=== PATIENT | female | born 1975 | race Caucasian/White ===

== ENCOUNTER → 2017-12-15 09:57 | Outpatient (REF) | payer SELFPAY | LOC: OM 09:57 | PROVIDERS: PCP Specialist/Technologist Athletic Trainer; Visit Provider Nurse Practitioner Family | DX: Z02.1 Encounter for pre-employment examination (principal) ==

== ENCOUNTER → 2017-12-17 16:23 | Outpatient (REF) | payer SELFPAY | LOC: OM 16:23 | PROVIDERS: PCP Specialist/Technologist Athletic Trainer; Visit Provider Nurse Practitioner Family | DX: Z11.1 Encounter for screening for respiratory tuberculosis (principal) ==

== ENCOUNTER 2018-03-30 12:42 | Outpatient (REF) | payer MEDICAID, SELFPAY ==
[2018-03-30 22:12] LABS: HCT 41.5 % (36.0-46.0); HGB 13.6 g/dL (12.0-15.5); Mean Corp. HGB Concentration 32.8 g/dL (32.0-36.0); Mean Corpuscular Hemoglobin 30.4 pg (27.0-33.0); Mean Corpuscular Volume 92.8 fL (80-95); Mean Platelet Volume 11.4 fL (8.0-11.0); Platelet Count 238 x1000/uL (130-400); RBC 4.47 m/cumm (4.00-5.20); RBC Distribution Width 13.7 % (11.7-14.6); White Blood Cell Count 5.81 k/cumm (4.4-10.8)
[2018-03-30 22:38] LABS: Anion Gap 10.5 mmol/L (3-11); BUN 16 mg/dL (7-18); CO2 25.5 mmol/L (21.0-32.0); CREATININE 0.63 mg/dL (0.55-1.02); Calcium 8.7 mg/dL (8.5-10.1); Chloride 104 mmol/L (98-107); Glucose 98 mg/dL (70-100); Potassium 3.9 mmol/L (3.5-5.1); Sodium 140 mmol/L (136-145); TSH (W/Ref FT4) 2.31 uIU/mL (0.358-3.74)
== END 2018-03-30 13:02 ==
LOC: NCHCN 12:42
PROVIDERS: PCP Specialist/Technologist Athletic Trainer; Visit Provider Specialist/Technologist Athletic Trainer
DX: R53.83 Other fatigue (principal)
CPT/HCPCS: 80048; 85027; 84443

== ENCOUNTER 2018-11-16 15:12 | Outpatient (REF) | payer MEDICAID, SELFPAY | END 2018-11-16 15:32 | LOC: NCHCN 15:12 | PROVIDERS: PCP Specialist/Technologist Athletic Trainer; Visit Provider Physician Assistant Medical | DX: R30.0 Dysuria (principal) | CPT/HCPCS: 87086 ==

== ENCOUNTER 2018-11-18 13:45 | Outpatient (REF) | payer MEDICAID, SELFPAY ==
[2018-11-19 14:41] LABS: Chlamydia Result Negative; GC Result Negative
== END 2018-11-18 14:05 ==
LOC: LBN 13:45
PROVIDERS: PCP Specialist/Technologist Athletic Trainer; Visit Provider Nurse Practitioner Women's Health
DX: Z11.3 Encounter for screening for infections with a predominantly sexual mode of transmission (principal)
CPT/HCPCS: 87491; 87591

== ENCOUNTER 2019-06-17 07:54 | Emergency (ER) | payer MEDICAID, SELFPAY ==
[2019-06-17 07:58] VITALS: BP 126/70; PULSE 101; TEMP 36.4; O2SAT 98
--- NOTE | 2019-06-17 08:06 | ED.GENADUL_ITS ---
Discharge Plan Disposition Patient Disposition: HOME Condition: Stable Discharge Details Chief Complaint: EarProblem Clinical Impression: Acute left otitis media Primary Care Provider: Fco Luna ED Provider: Lyle Graves Home Meds and New Rx's Prescriptions: New clindamycin HCl 150 mg capsule 450 mg PO TID 7 Days Qty: 63 RF: 0 Continued dextroamphetamine-amphetamine [Adderall] 10 MG tablet 30 mg PO DAILY RF: 0 ibuprofen 200 mg Tablet 600 mg PO Q6H PRNRF: 0 Discharge Instructions Instructions: Otitis Media (ED) Additional Instructions: continue to take the azithromycin and start the clindamycin you can take 1000mg tylenol and 600mg ibuprofen every 6 hours for pain as needed if you have high fevers or severe worsening pain return to the emergency department Medical Decision Making 44 yo female with no chronic medical problems comes in with chief complaint of 3 days of left ear pain. She was started on azithromycin and has had 3 doses but still has pain so came here. Denies fevers, chills, drainage or trauma. She has no evidence of mastoiditis on external exam, right tm normal and both external auditory canals appear normal without swelling. The left TM is red and bulging. given she has not had improvement with azithromcyin will add clindamycin and advised prn tylenol and ibuprofen. REturn precautions given Differential Diagnosis Differential Diagnosis: sinusitis, otitis media HPI General Mode of arrival: ambulatory . Date/Time Provider Initiated Documentation: 06/17/19 07:58 . Limitations to Documentation: no limitations . Information obtained by: patient . History of Present Illness 44 year old F presents to the emergency department with the chief complaint of left ear pain, described as moderate, and it has been constant. No relieving factors improve symptom(s), No exacerbating factors reported . Patient did receive the following treatments prior to arrival, none Related Data Home Medications Medication Instructions Recorded Confirmed dextroamphetamine-amphetamine 30 mg PO DAILY tab-cap 06/30/06/17/19 [Adderall] clindamycin HCl 450 mg PO TID 7 Days #63 cap 06/17/19 ibuprofen 600 mg PO Q6H PRN 06/17/19 06/17/19 Previous Rx's Medication Instructions Recorded clindamycin HCl 450 mg PO TID 7 Days #63 cap 06/17/19 Allergies Allergy/AdvReac Type Severity Reaction Status Date / Time Penicillins Allergy Mild RASH Unverified 06/17/19 08:00 POULTRY AdvReac Mild VOMIT Uncoded 06/17/19 08:00 General Stated Complaint: EarProblem JODIE: 4 Review of Systems All systems reviewed & are unremarkable except as noted in HPI and below Constitutional Constitutional: Denies chills and Denies fever(s) ENT Ears, Nose, Mouth, and Throat: Denies change in voice Cardiovascular Cardiovascular: Denies chest pain and Denies dyspnea Respiratory Respiratory: Denies cough and Denies dyspnea Gastrointestinal Gastrointestinal: Denies abdominal pain, Denies nausea and Denies vomiting Integumentary/Breasts Skin/Breast: Denies rash Psychiatric Psychiatric: Denies depression [facility] Medical History (Updated 06/17/19 @ 08:07 by Lyle Graves MD) Acne Cystocele, grade 2 2015 Internal hemorrhage seen by Dr. Garcia. No surgery recommended. Urinary incontinence mild ABILIO Surgical History (Updated 02/11/18 @ 14:35 by Pirate Pay MD) Tonsillectomy and adenoidectomy (~1992) Family History Mother No problems noted. Father No problems noted. Brother No problems noted. Grandfather No problems noted. Grandfather No problems noted. Grandmother No problems noted. Grandmother No problems noted. Social History Smoking/Tobacco Use Status: Current every day Tobacco Type: cigarettes Alcohol Intake: never Drug use: Never Substance use type: does not use Do you feel safe at home: Yes Do you feel safe in your relationship?: Yes Exam Const General: no acute distress Orientation: alert HENMT Head: normal to inspection Ears: external ears normal General nose exam: external nose normal Mouth: moist mucous membranes Eyes General: appearance normal, both eyes and all related structures Neck Neck: normal visual inspection Resp Effort & Inspection: normal respiratory effort and able to speak in complete sentences Cardio Rate: regular rate Skin General skin exam: no rashes or lesions noted Neuro General: alert and oriented x3 Extrem General: normal to inspection Psych Mental Status: mental status grossly normal Course Vital Signs Vital signs: Vital Signs Temperature 36.4 C L 06/17/19 07:58 Pulse 101 H 06/17/19 07:58 Blood Pressure 126/70 06/17/19 07:58 Pulse Oximetry 98 06/17/19 07:58 Temperature 36.4 C L 06/17/19 07:58 Pulse 101 H 02/20/20 07:58 Respiratory Effort Non-Labored 06/17/19 07:59 Blood Pressure 126/70 06/17/19 07:58 Blood Pressure Position Sitting 06/17/19 07:58 Pulse Oximetry 98 06/17/19 07:58 Oxygen Delivery Method Room Air 06/17/19 07:58 Oxygen Flow Rate 0 06/17/19 07:58 Pain Level 8 06/17/19 07:58
== END 2019-06-17 08:13 | disposition home or self-care (01) ==
LOC: ER 08:12
PROVIDERS: Emergency Provider Emergency Medicine; PCP Specialist/Technologist Athletic Trainer
DX: H66.92 Otitis media, unspecified, left ear (principal)
CPT/HCPCS: 99283

== ENCOUNTER 2019-06-17 20:32 | Observation (INO) | payer MEDICAID, SELFPAY ==
[2019-06-17 20:34] VITALS: BP 115/78; PULSE 96; RESP 20; TEMP 36.6; O2SAT 99
--- NOTE | 2019-06-17 20:42 | W.ED.GENAD ---
Discharge Plan Disposition Patient Disposition: [facility] INPATIENT Condition: Good Discharge Details Chief Complaint: EarProblem Clinical Impression: Acute suppur left otitis media w/spontan rupture of tympanic membrane, External otitis of left ear Primary Care Provider: Fco Luna ED Provider: Richy Fowler [place] Meds and New Rx's Prescriptions: No Action dextroamphetamine-amphetamine [Adderall] 10 MG tablet 30 mg PO DAILY RF: 0 azithromycin 250 mg Tablet 250 mg PO DAILY RF: 0 ibuprofen 200 mg Tablet 600 mg PO Q6H PRNRF: 0 clindamycin HCl 150 mg capsule 450 mg PO TID 7 Days Qty: 63 RF: 0 Medical Decision Making Patient presents with worsening symptoms related to left AOM. Now has presumed ruptured TM with purulent drainage but has also developed swelling and erythema of the canal and auricle itself. She also has significant tenderness behind the ear. She has had no fevers or chills. She does not look toxic. However, must consider mastoiditis and worsening otitis. Will place IV and get head/sinus CT. check CBC and chemistry. Fluids and Toradol ordered. Patient's laboratory studies are unremarkable. White count is normal. CT scan does show fluid within the left middle ear and mastoid. She also has air-fluid levels in the left sphenoid sinus. There is subtle edema over the left mastoid and the soft tissue. There is no lytic lesions, abscess, destructive process. Case discussed with ENT at [facility]. Images sent down but they were unable to open. Decided that patient does not need emergent transfer. Admit for IV antibiotics with recommendation of clindamycin since significant penicillin allergy. Also recommend both ear wick and Ciprodex twice a day. Discussed with patient. Discussed with hospitalist. Will also cover with Levaquin for possible Pseudomonas infection. Will attempt ENT consult tomorrow if available. Patient admitted in good condition. Medical Records Medical records reviewed: Yes I reviewed the patient's medical records. Lab Data Lab results reviewed: Yes I reviewed the patient's lab results. HPI General Mode of arrival: ambulatory. Date/Time Provider Initiated Documentation: 06/17/19 20:40. Limitations to Documentation: no limitations. Information obtained by: patient, RN notes reviewed and old records reviewed. HPI Narrative: Patient presents to ED with worsening left ear pain. Patient got over a cold a few days ago. Subsequently developed left ear pain. Was seen by primary care and started on a azithromycin. She has allergies to penicillins. She was seen here in the emergency department this morning with worsening ear pain. She still had erythematous bulging eardrum per the ED note. Azithromycin was continued and clindamycin was added. Since going home patient's pain has become worse. The ear has been draining copious amounts of fluid. The ear has also become swollen and red. She is starting to have pain in the left side of her face as well as behind her ear. She has a mild headache. She has had no fevers or chills that she is aware of. Throat a little more sore than it was. No cough or trouble breathing. No neurologic changes. She has nausea and no appetite because of the pain. There has been no vomiting. Related Data Home Medications Medication Instructions Recorded Confirmed dextroamphetamine-amphetamine 30 mg PO DAILY tab-cap 06/30/14 06/17/19 [Adderall] azithromycin 250 mg PO DAILY 06/17/19 06/17/19 clindamycin HCl 450 mg PO TID 7 Days #63 cap 06/17/19 06/17/19 ibuprofen 600 mg PO Q6H PRN 06/17/19 06/17/19 Previous Rx's Medication Instructions Recorded clindamycin HCl 450 mg PO TID 7 Days #63 cap 06/17/19 Allergies Allergy/AdvReac Type Severity Reaction Status Date / Time Penicillins Allergy Mild RASH Unverified 06/17/19 20:36 POULTRY AdvReac Mild VOMIT Uncoded 06/17/19 20:36 General Stated Complaint: EarProblem JODIE: 5 Review of Systems Narrative: 02/08 Review of Systems completed and is negative except as stated above in HPI (Systems reviewed: Const, Eyes, ENT, Resp, CV, GI, , MSK, Skin, Neuro) [facility] Medical History (Updated 06/17/19 @ 23:38 by Richy Fowler MD) Acne ADHD (Chronic) Cystocele, grade 2 2015 Urinary incontinence mild ABILIO Surgical History Tonsillectomy and adenoidectomy (~1992) Family History Mother No problems noted. Father No problems noted. Brother No problems noted. Grandfather No problems noted. Grandfather No problems noted. Grandmother No problems noted. Grandmother No problems noted. Social History Smoking/Tobacco Use Status: Current every day Tobacco Type: cigarettes Alcohol Intake: never Drug use: Never Substance use type: does not use Do you feel safe at home: Yes Do you feel safe in your relationship?: Yes Exam Narrative Exam Narrative: Vitals: Afebrile here. Normal vital signs and normal room air pulse oximetry. Const: WDWN female in NAD. HEENT: NC/AT. Normal facial exam. Left ear with erythema involving the internal portion of the auricle, specifically tragus and antitragus as well as the entry into the canal. Canal itself has purulent material present but is so swollen I am unable to visualize the TM. There is tenderness posteriorly behind the ear but no significant swelling or erythema. Right TM is normal. Eyes: Normal conjunctiva and sclera. Neck: Supple. Trachea midline. No meningeal signs. Lungs: Normal respiratory effort. Lungs are clear. Cor: RRR without murmur/gallop. Good radial pulses. Neuro: A+O x 3. Normal speech, mentation, gait. Cranial nerves II - XII grossly intact. No gross motor or sensory deficit. Ext: No C/C/E. Skin: Warm and dry without rash. Course Vital Signs Vital signs: Vital Signs Temperature 97.9 F 06/17/19 20:34 Pulse 96 H 06/17/19 20:34 Respiratory Rate 20 06/17/19 20:34 Blood Pressure 115/78 06/17/19 20:34 Pulse Oximetry 99 06/17/19 20:34 Temperature 97.9 F 06/17/19 20:34 Temperature Source Temporal Artery Scan 06/17/19 20:34 Pulse 96 H 06/17/19 20:34 Respiratory Rate 20 06/17/19 20:34 Respiratory Effort Non-Labored 06/17/19 20:37 Blood Pressure 115/78 06/17/19 20:34 Pulse Oximetry 99 06/17/19 20:34 Oxygen Delivery Method Room Air 06/17/19 20:34 Oxygen Flow Rate 0 06/17/19 20:34 Pain Level 8 06/17/19 20:37
[2019-06-17 21:11] LABS: Abs Immature Grans 0.06 k/cumm (0.0-0.09); Absolute Basophil Count 0.02 k/cumm (0.0-0.2); Absolute Eosinophil Count 0.43 k/cumm (0.0-0.7); Absolute Lymphocyte Count 2.53 k/cumm (1.2-3.4); Absolute Monocyte Count 0.75 k/cumm (0.11-0.7); Absolute Neutrophil Count 4.76 k/cumm (1.2-6.7); Basophils % 0.2; HCT 40.2 % (36.0-46.0); HGB 13.3 g/dL (12.0-15.5); Immature Grans % 0.7 %; Lymphocytes % 29.6; Mean Corp. HGB Concentration 33.1 g/dL (32.0-36.0); Mean Corpuscular Hemoglobin 29.6 pg (27.0-33.0); Mean Corpuscular Volume 89.3 fL (80-95); Mean Platelet Volume 11.1 fL (8.0-11.0); Monocytes % 8.8; Neutrophils % 55.7; Platelet Count 302 x1000/uL (130-400); RBC Distribution Width 13.3 % (11.7-14.6); White Blood Cell Count 8.55 k/cumm (4.4-10.8)
[2019-06-17 21:17] LABS: Anion Gap 8.6 mmol/L (3-11); BUN 14 mg/dL (7-18); CO2 27.4 mmol/L (21.0-32.0); CREATININE 0.75 mg/dL (0.55-1.02); Calcium 8.5 mg/dL (8.5-10.1); Chloride 103 mmol/L (98-107); Glucose 91 mg/dL (74-106); Potassium 3.7 mmol/L (3.5-5.1); Sodium 139 mmol/L (136-145)
[2019-06-17] MEDS: Ketorolac 15 MG/ML VIAL IVP (21:18)
[2019-06-17] MEDS: Lactated Ringers 1,000 ML 200 ML IV (21:18)
[2019-06-17] MEDS: Normal Saline Flush 10 ML SYR IVP (21:18)
--- NOTE | 2019-06-17 21:29 | DI.CT_ITS ---
EXAM: CT HEAD SINUS WO CLINICAL HISTORY: worsening left ear/mastoid/face pain TECHNIQUE: Noncontrast. COMPARISON: No exams were available for comparison FINDINGS: Head CT: No intracranial hemorrhage, mass or infarct is seen. The ventricles are normal in size. G ray-white matter differentiation appears normal. There is no visible atrophy. The orbits are unrema rkable. Sinus CT: There is near complete opacification of the left sphenoid sinus. A small amount of debris i s seen in the right sphenoid sinus. The frontal, ethmoid sinuses and mastoid air cells appear clear. The ostiomeatal complexes are patent. There is mild chrissy bullosa of the right middle turbinate. The nasal cavity appears clear. There is mild deviation of the nasal septum toward the right. Ther e is fluid seen partially opacifying the right mastoid air cells. There is also fluid surrounding th e ossicles, in the middle ear. The right mastoid air cells appear clear. The visualized portions of the cervical spine are unremarkable. The orbits, parotid and submandibular glands are unremarkable. There is no evidence of bony erosion. IMPRESSION: Negative head CT. Left otomastoiditis without evidence of bony destruction. Bilateral sphenoid sinusitis.
--- NOTE | 2019-06-17 22:00 | DI.VRAD_ITS ---
PROCEDURE INFORMATION: Exam: CT Head Without Contrast Exam date and time: 06/17/2019 8:55 PM Age: 44 years old Clinical indication: Headache; Other: Left ear/mastoid/face pain TECHNIQUE: Imaging protocol: Computed tomography of the head without contrast. Radiation optimization: All CT scans at this facility use at least one of these dose optimization techniques: automated exposure control; mA and/or kV adjustment per patient size (includes targeted exams where dose is matched to clinical indication); or iterative reconstruction. COMPARISON: No relevant prior studies available. FINDINGS: Brain: Normal volume for age. No hemorrhage. No significant white matter disease. No edema. Ventricles: Unremarkable. No ventriculomegaly. Bones/joints: No acute fracture or dislocation. Sinuses: There is near complete opacification of the left sphenoid sinus with air-fluid level with flocculent debris within the dependent right sphenoid sinus. Paranasal sinuses are otherwise well aerated without air-fluid level. Mastoid air cells: Moderate opacification of the left mastoid air cells. No associated osseous lytic/destructive process or significant osseous sclerosis of the left mastoid air cells. The right mastoid air cells are clear. Orbits: Unremarkable. Soft tissues: Subtle subcutaneous edema overlying the left mastoid process without significant asymmetric skin thickening or soft tissue fluid collection. No periosteal abscess identified. There is partial opacification of the left middle ear cavity involving the ossicles. IMPRESSION: 1. No acute intracranial finding. 2. Findings compatible with left otomastoiditis. No osseous lytic/destructive process of the left mastoid air cells. No adjacent cortical disruption or soft tissue mass/fluid collection. Correlate clinically. 3. Opacification with air-fluid level of the left sphenoid sinus. Correlate clinically for symptoms of sinusitis. PROCEDURE INFORMATION: Exam: CT Maxillofacial Without Contrast, Sinus Exam date and time: 06/17/2019 8:55 PM Age: 44 years old Clinical indication: Headache; Other: Left ear/mastoid/face pain TECHNIQUE: Imaging protocol: CT Maxillofacial without contrast. Focus on the sinuses. Radiation optimization: All CT scans at this facility use at least one of these dose optimization techniques: automated exposure control; mA and/or kV adjustment per patient size (includes targeted exams where dose is matched to clinical indication); or iterative reconstruction. COMPARISON: No relevant prior studies available. FINDINGS: Frontal sinuses: Well aerated without air-fluid level. Frontoethmoidal recesses are patent. Ethmoid air cells: Clear. Sphenoid sinuses: There is near complete opacification of the left sphenoid sinus with air-fluid level with flocculent debris within the dependent right sphenoid sinus. Paranasal sinuses are otherwise well aerated without air-fluid level. Punctate focal opacity at the bilateral spheno are ethmoidal recesses. Maxillary sinuses: Normal. No air-fluid levels. Ostiomeatal units are patent. Orbits: Orbits are normal. Globes are unremarkable. Mastoid air cells: Moderate opacification of the left mastoid air cells. No associated osseous lytic/destructive process or significant osseous sclerosis of the left mastoid air cells. The right mastoid air cells are clear. Nasal cavity/Septum: Unremarkable. Soft tissues: Subtle subcutaneous edema overlying the left mastoid process without significant asymmetric skin thickening or soft tissue fluid collection. No periosteal abscess identified. There is partial opacification of the left middle ear cavity involving the ossicles. Bones/joints: No acute fracture or dislocation. IMPRESSION: 1. Findings compatible with left otomastoiditis. No osseous lytic/destructive process of the left mastoid air cells. No adjacent cortical disruption or soft tissue mass/fluid collection. Correlate clinically. 2. Opacification with air-fluid level of the left sphenoid sinus. Correlate clinically for symptoms of sinusitis. Dictated and Authenticated by: Jarad Carreon MD. Ordering:SHABNAM Lockhart MD
[2019-06-17] MEDS: CLINDAMYCIN 600 MG/50 ML BAG 100 MG IVPB (23:27)
[2019-06-17] MEDS: levoFLOXacin 500 MG/100 ML BAG 100 MG IVPB (23:32)
[2019-06-17 23:37] VITALS: BP 102/64; PULSE 80; RESP 19; TEMP 37; O2SAT 100
[2019-06-17] MEDS: Ciprofloxacin/Dexameth. 7.5 ML BTL AS (23:42)
[2019-06-18 00:04] VITALS: BP 102/64; PULSE 80; RESP 19; TEMP 37; O2SAT 100
[2019-06-18 00:22] VITALS: BP 126/82; PULSE 95; RESP 16; TEMP 37; O2SAT 100
[2019-06-18 04:00] VITALS: BP 106/68; PULSE 75; RESP 18; TEMP 36.8; O2SAT 96
[2019-06-18] MEDS: Lactated Ringers 1,000 ML 200 ML IV (04:09)
[2019-06-18] MEDS: Normal Saline Flush 10 ML SYR IVP (04:09)
[2019-06-18] MEDS: Ketorolac 15 MG/ML VIAL IVP ×2 (04:09→16:14)
--- NOTE | 2019-06-18 04:44 | HPE_ITS ---
Date of service: 06/18/19 Time of Service: 04:45 Assessment and Plan Assessment and plan (1) Acute suppur left otitis media w/spontan rupture of tympanic membrane: Status: Acute Assessment and plan: Progressive pain, manifestations of involvement of mastoid area, spontaneous drainage with external inflammatory changes suggesting addition of otitis externa, failed outpatient therapy initially started with azithromycin and then clindamycin added on. Significant allergic reactions to several different beta-lactam antibiotics, outpatient notes indicate shortness of breath with cephalexin and rash with penicillin. Also noted to have sulfa allergy with rash. It is possible she has strep pneumonia resistant to macrolide antibiotic as the cause. Per Dr. Fowler's conversation with [facility], earwick and Ciprodex drops being applied. She is also on parenteral Levaquin and clindamycin. Further ENT consult request has been placed to assist with ongoing management. Thus far does not appear to have a need for surgical intervention. If there is clinical improvement with this combination of ant ibiotics, possible discharge on oral Levaquin and clindamycin to complete treatment. (2) Sinusitis: Status: Acute Assessment and plan: Part of the same process that has resulted in her left otitis media with perforation. Management as above. (3) ADHD: Status: Chronic Assessment and plan: Adderall on hold for the short-term. She does not use this daily. (4) Tobacco smoker, less than 10 cigarettes per day: Status: Acute Assessment and plan: She is working to cut down and quit. Will offer nicotine inhaler as needed. History of Present Illness History of Present Illness Chief Complaint: Progressive left ear pain Narrative: Generally healthy 44-year-old woman working on smoking cessation, presented to the emergency room for the second time in less than 24 hours with worsening left ear pain. She was seen by her primary acute care clinical nurse specialist 2 days prior with resolving flulike symptoms of but development of left ear pain. She was found to have acute otitis media and was started on azithromycin because of her multiple drug allergies. She had increasing discomfort, pressure sensation within the ear, but no external erythema of the pinna or drainage when she presented to the emergency room on the morning of admission because of increased discomfort. Clindamycin orally was added to the azithromycin, of which she had had 2 doses thus far. Her pain continued to progress, her ear became red and tender and she had spontaneous drainage of mucopurulent material from the left ear prompting return to the ER on the evening of admission. She did not have forward or downward displacement of the ear or obvious swelling over the mastoids. She was mildly tender. CT scan was performed which showed inflammatory involvement of left sphenoid and mastoid sinus areas as well as the middle ear. There was no bone destruction. ENT at [facility] [place] consulted by Dr. Fowler, who reviewed the images and did not see a need for surgical intervention at this time. Recommendations for for placing an ear wick, using Ciprodex drops and clindamycin parenterally. In conversation with Dr. Fowler I did not feel we had adequate gram-negative coverage, particularly Pseudomonas, with this combination and recommended the addition of Levaquin. She has been admitted for parenteral antibiotics and symptom management. Review of Systems Narrative: Flulike symptoms have resolved but still has a bit of a headache. Pain control since admission with the use of ketorolac and the eardrops has helped. No cough or wheeze. Appetite down but no nausea or vomiting. No abdominal pain. No dysuria. No facial numbness. No double vision. No trouble swallowing. Full sensation in the left mid face area. No epistaxis. [facility] Medical History (Updated 06/18/19 @ 04:47 by Santosh Leon MD) Acne ADHD (Chronic) Cystocele, grade 2 2015 Urinary incontinence mild ABILIO Surgical History Tonsillectomy and adenoidectomy (~1992) Family History Mother No problems noted. Father No problems noted. Brother No problems noted. Grandfather No problems noted. Grandfather No problems noted. Grandmother No problems noted. Grandmother No problems noted. Social History Smoking/Tobacco Use Status: Current every day Tobacco Type: cigarettes Alcohol Intake: never Drug use: Never Substance use type: does not use Do you feel safe at home: Yes Do you feel safe in your relationship?: Yes Meds Home Medications and Allergies Home Medications Medication Instructions Recorded Confirmed Type dextroamphetamine-amphetamine 30 mg PO DAILY tab-cap 06/30/14 06/17/19 History [Adderall] azithromycin 250 mg PO DAILY 06/17/19 06/17/19 History clindamycin HCl 450 mg PO TID 7 Days #63 cap 06/17/19 06/17/19 Rx ibuprofen 600 mg PO Q6H PRN 06/17/19 06/17/19 History Allergies Allergy/AdvReac Type Severity Reaction Status Date / Time Penicillins Allergy Mild RASH Unverified 06/17/19 20:36 POULTRY AdvReac Mild VOMIT Uncoded 06/17/19 20:36 Exam Narrative Exam Narrative: Woman appearing her stated age, mildly uncomfortable from left e ar. Afebrile since admission. Blood pressures 100s over 60s pulse in the 70s SaO2 96% on room air. Sclera clear. No rhinorrhea present now. There is erythema of the left pinna mild edema of the pinna no forward or downward displacement. There is a wick in the left auditory canal, I did not remove this. Per description from Dr. Fowler in the ER before the wick was placed canal was swollen, filled with debris with poor view of the tympanic membrane. (Outpatient note from exam 3 days ago reported left ear red and bulging.) No swelling over the mastoids nor any redness. Mildly tender to percussion over the mastoids on the left. Some fullness and pressure feeling with percussion of the left frontal sinus. Pharynx clear no posterior pharyngeal discharge seen. No cervical adenopathy. Neck supple. Lungs are clear. No heart murmur S3 or S4. Nontender abdomen with normal bowel sounds. Good pulses distally. No rash. No petechiae. No edema at the ankles or calves. Symmetric movement of all extremities. Sits up unassisted. Oriented x4. Results CT scan of the brain normal. Complete opacification of the left sphenoid sinus, moderate opacification of left mastoid without bone destruction or lytic changes. Partial opacification of the left middle ear. Culture of the discharge from the left ear obtained with results pending. Labs Result diagrams: 06/17/19 21:05 06/17/19 21:05 Labs: Laboratory Results - last 24 hr 06/17/19 06/17/19 21:05 21:05 WBC 8.55 RBC 4.50 Hgb 13.3 Hct 40.2 MCV 89.3 MCH 29.6 MCHC 33.1 RDW 13.3 Plt Count 302 MPV 11.1 H Immature Gran % 0.7 Neutrophils % 55.7 Lymphocytes % 29.6 Monocytes % 8.8 Eosinophils % 5.0 Basophils % 0.2 Absolute Neutrophils 4.76 Absolute Lymphocytes 2.53 Absolute Monocytes 0.75 H Absolute Eosinophils 0.43 Absolute Basophils 0.02 Sodium 139 Potassium 3.7 Chloride 103 Carbon Dioxide 27.4 Anion Gap 8.6 BUN 14 Creatinine 0.75 Estimated GFR/1.73 m2 >= 60.00 Glucose 91 Calcium 8.5 Last Vital Signs Temp 36.8 C 06/18/19 04:00 Pulse 75 06/18/19 04:00 Resp 18 06/18/19 04:00 BP 106/68 06/18/19 04:00 Pulse Ox 96 06/18/19 04:00
[2019-06-18] MEDS: CLINDAMYCIN 600 MG/50 ML BAG 100 MG IVPB ×3 (06:33→17:09)
[2019-06-18 07:40] VITALS: BP 102/68; PULSE 78; RESP 16; TEMP 36.8; O2SAT 97
[2019-06-18] MEDS: Ciprofloxacin/Dexameth. 7.5 ML BTL AS (08:54)
--- NOTE | 2019-06-18 10:36 | PHARADMIT ---
Admission Pharmacy Clinical Review left osorio-mastoiditis, (burst ear drum) Code Status Full Code Current Weight Wgt-78 kg Renally Cleared and Narrow Therapeutic Index Meds Crcl~ 92.41 mL/min Meds-OK QTc Value / Action Taken QTc-413 na BP Control, Fever BP-102/86 Tmax-37C Electrolytes reviewed Na-139 K+3.7 DVT Prophylaxis none Opiate Usage / Scheduled Bowel Regimen Ordered No No Plt/SCr for Heparin / Enoxaparin Plts-302 SCr-0.75 INR for Warfarin na H/H stable, WBC/Bands H&H- 13.3/40.2 WBC- 8.55 Antibiotic appropriateness Clindamycin IV, Levaquin IV, CiproDex Cultures and Sensitivities Ear culture-pending Surgical ABX d/c within 24 hr na DM control / Insulin Dosing BG-91 Heart Failure (Check EF%) (JULISSA's, B-Block, Diuretics) None IV to PO Switch No Home Meds Reviewed Yes Home Meds Not Ordered Adderall, Ibuprofen, Azithromycin Comments
[2019-06-18] MEDS: Lactated Ringers 1,000 ML 125 ML IV (12:03)
--- NOTE | 2019-06-18 13:54 | W.NUTCONSULT ---
Date of service: 06/18/19 Time of Service: 13:54 Nutritional Consult ASSESSMENT: 44 year old female admitted with left otitus media. BMI wnl. Following regular meal plan with adequate intake. not at nutritional risk at this time. reports that she is allergic to poultry, dietary notified MONITORING AND EVALUATION: weight, po intake, labs Time Spent in Nutritional Counseling and Treatment: 0 time spent face to face
--- NOTE | 2019-06-18 15:17 | DSE_ITS ---
Date of service: 06/18/19 Time of Service: 15:17 DS: Diagnosis Discharge Diagnosis (1) Acute suppur left otitis media w/spontan rupture of tympanic membrane: Status: Acute (2) Sinusitis: Status: Acute (3) ADHD: Status: Chronic (4) Tobacco smoker, less than 10 cigarettes per day: Status: Acute Discharge Plan Disposition Patient Disposition: HOME Condition: Good Discharge Details Chief Complaint: EarProblem Clinical Impression: Acute suppur left otitis media w/spontan rupture of tympanic membrane, External otitis of left ear Reason For Visit: LEFT OTOMASTOIDITIS Admit Date/Time: 06/17/19 23:29 Admit Provider: Santosh Leon Attending Provider: Santosh Leon Primary Care Provider: Fco Luna ED Provider: Richy Fowler [facility] Hospital Course: A generally healthy 44-year-old woman working on smoking cessation, presented to the emergency room for the second time in less than 24 hours with worsening left ear pain. She was seen by her primary clinical care coordinator 2 days prior with resolving flulike symptoms of but development of left ear pain. She was found to have acute otitis media and was started on azithromycin because of her multiple drug allergies. She had increasing discomfort, pressure sensation within the ear, but no external erythema of the pinna or drainage when she presented to the emergency room on the morning of admission because of increased discomfort. Clindamycin orally was added to the azithromycin, of which she had had 2 doses thus far. Her pain continued to progress, her ear became red and tender and she had spontaneous drainage of mucopurulent material from the left ear prompting return to the ER on the evening of admission. She did not have forward or downward displacement of the ear or obvious swelling over the m astoids. She was mildly tender. CT scan was performed which showed inflammatory involvement of left sphenoid and mastoid sinus areas as well as the middle ear. There was no bone destruction. ENT at [facility] was consulted by Dr. Fowler, who reviewed the images and did not see a need for surgical intervention at this time. Recommendations for for placing an ear wick, using Ciprodex drops and clindamycin parenterally. In conversation with Dr. Fowler I did not feel we had adequate gram-negative coverage, particularly Pseudomonas, with this combination and recommended the addition of Levaquin. She has been admitted for parenteral antibiotics and symptom management. Her symptoms have improved and she is hoping to go home to complete her course of antibiotics outpatient. she will receive a dose of IV clindamycin at 6 pm tonight then will be discharge to complete her course oral. she already has the prescription. I will have her stop the zithromax and continue with levaquin outpatient. she will follow up with ENT outpatient or return sooner for new or worsening symptoms. Home Meds and New Rx's Prescriptions: New Ciprodex 0.3-0.1 % Drops,Suspension 0 ml BID Qty: 0 RF: 0 levofloxacin [Levaquin] 500 mg tablet 500 mg PO DAILY Qty: 10 RF: 0 Continued dextroamphetamine-amphetamine [Adderall] 10 MG tablet 30 mg PO DAILY RF: 0 ibuprofen 200 mg Tablet 600 mg PO Q6H PRNRF: 0 clindamycin HCl 150 mg capsule 450 mg PO TID 7 Days Qty: 63 RF: 0 Discontinued azithromycin 250 mg Tablet 250 mg PO DAILY RF: 0 Discharge Instructions Instructions: Mastoiditis (DC) Additional Instructions: stop azithromycin and start levaquin for 10 days. continue clindamycin as previously directed. drink at least 6-8 glasses of water to stay well hydrated. continue ciprodex ear drops 2 times daily. Stand Alone Forms: Nursing Discharge Form Referrals: Fco Luna [Primary Care Provider] - 06/28/19 8:45 am Activity:: Activity as Tolerated Equipment/Supplies:: No Equipment Needed Diet:: As Tolerated Discharge Orders Discharge Orders: Discharge Order (Routine); Ordered 06/18/19 Ordered By: Brinda Minor DS: Summary Status at Discharge Functional status at discharge: independent ambulation Overall status at discharge: patient is progressing back to baseline Mental Status: mental status grossly normal Speech and Movement: speech and movement normal Mood: congruent mood Affect: normal affect Exam Psych Mental Status: mental status grossly normal Speech and Movement: speech and movement normal Mood: congruent mood Affect: normal affect DS: Data Vitals/I&O Vitals and I&O: Vital Signs Temperature 36.8 C 06/18/19 07:40 Temperature Source Tympanic 06/18/19 07:40 Pulse 78 06/18/19 07:40 Pulse Rhythm Regular 06/18/19 08:00 Respiratory Rate 16 06/18/19 07:40 Respiratory Effort 06/18/19 08:00 Respiratory Depth Normal 06/18/19 08:00 Respiratory Pattern Normal 06/18/19 08:00 Blood Pressure 102/68 06/18/19 07:40 Pulse Oximetry 97 06/18/19 07:40 Oxygen Delivery Method Room Air 06/18/19 07:40 Oxygen Flow Rate 0 06/18/19 07:40 Pain Level 0 06/18/19 07:40 Intake & Output 06/17/19 06/18/19 06/18/19 23:59 11:59 23:59 Intake Total 1563.333 / 2548.750 985.417 / 2548.750 Output Total 500 / 500 Balance 1063.333 / 2048.750 985.417 / 2048.750 Weight 78.018 kg 78.018 kg Intake: IV 1203.333 / 2188.750 985.417 / 2188.750 Oral 360 / 360 Output: Urine 500 / 500 Other: Urine Color Yellow Urine Appearance Clear Urine Odor None Voiding Methods Toilet Data Completed and Pending Labs on day of discharge: Labs from last 24 hours 06/17/19 06/17/19 21:05 21:05 WBC 8.55 RBC 4.50 Hgb 13.3 Hct 40.2 MCV 89.3 MCH 29.6 MCHC 33.1 RDW 13.3 Plt Count 302 MPV 11.1 H Immature Gran % 0.7 Neutrophils % 55.7 Lymphocytes % 29.6 Monocytes % 8.8 Eosinophils % 5.0 Basophils % 0.2 Absolute Neutrophils 4.76 Absolute Lymphocytes 2.53 Absolute Monocytes 0.75 H Absolute Eosinophils 0.43 Absolute Basophils 0.02 Sodium 139 Potassium 3.7 Chloride 103 Carbon Dioxide 27.4 Anion Gap 8.6 BUN 14 Creatinine 0.75 Estimated GFR/1.73 m2 >= 60.00 Glucose 91 Calcium 8.5 06/17/19 23:26 Ear - Left Ear Culture - Pending Preliminary micro results at discharge 06/17/19 23:26 Ear Culture - Pending Ear - Left [facility] Medical History (Updated 06/18/19 @ 04:47 by Santosh eLon MD) Acne ADHD (Chronic) Cystocele, grade 2 2015 Urinary incontinence mild ABILIO Surgical History Tonsillectomy and adenoidectomy (~1992) Family History Mother No problems noted. Father No problems noted. Brother No problems noted. Grandfather No problems noted. Grandfather No problems noted. Grandmother No problems noted. Grandmother No problems noted. Social History Smoking/Tobacco Use Status: Current every day Tobacco Type: cigarettes Alcohol Intake: never Drug use: Never Substance use type: does not use Do you feel safe at home: Yes Do you feel safe in your relationship?: Yes
== END 2019-06-18 18:19 | disposition home or self-care (01) ==
LOC: ER 23:36 → MS 06-18 00:13
PROVIDERS: Admitting Provider Internal Medicine; Emergency Provider Emergency Medicine; PCP Specialist/Technologist Athletic Trainer; Visit Provider Internal Medicine
DX: H66.012 Acute suppurative otitis media with spontaneous rupture of ear drum, left ear (principal); H60.92 Unspecified otitis externa, left ear; H66.92 Otitis media, unspecified, left ear; J32.8 Other chronic sinusitis; F90.9 Attention-deficit hyperactivity disorder, unspecified type; F17.210 Nicotine dependence, cigarettes, uncomplicated
CPT/HCPCS: 36415; 80048; 81025; 96361; 96365; 96368; 96375; 99217; 99219; 99283; 99285; 70450; 70486; 85025; 87070; G0378; J1885; J1956

== ENCOUNTER 2019-07-09 01:03 | Emergency (ER) | payer MEDICAID, SELFPAY ==
[2019-07-09 01:07] VITALS: BP 122/83; PULSE 89; RESP 18; TEMP 36.5; O2SAT 19
--- NOTE | 2019-07-09 01:27 | ED.GENADUL_ITS ---
Discharge Plan Disposition Patient Disposition: HOME Condition: Good Discharge Details Chief Complaint: RespSymp Clinical Impression: Viral infection, Suspected 2019 novel coronavirus infection Primary Care Provider: Fco Luna ED Provider: Duglas Jackson Home Meds and New Rx's Prescriptions: No Action dextroamphetamine-amphetamine [Adderall] 10 MG tablet 30 mg PO DAILY RF: 0 Discharge Instructions Instructions: Viral Syndrome (ED) Additional Instructions: At this time your symptoms are consistent with a viral upper respiratory infection. I am concerned that this is from coronavirus. It will take 48 to 72 hours for your coronavirus test to return. You will be contacted with the results, however I would recommend that you contact the hospital in the next 48 to 72 hours if you hear nothing from us. In the meantime, please use your inhaler, 2 puffs every 4-6 hours to help with relief of symptoms. Drink plenty of fluids, take Tylenol and Motrin as needed for fever. Get plenty of rest. Out of an abundance of precaution recommend to self quarantine yourself for a total of 14 days or until completely symptom-free for greater than 24-48 hours after speaking with and consulting a physician. It would be prudent to wear a mask at all times, always wash your hands frequently, follow-up closely with your primary care provider over the phone. Please always call their office first. If you notice any worsening of your symptoms, or any new symptoms such as vomiting, diarrhea, worsening fever, worsening chills, worsening shortness of breath, difficulty breathing, chest pain, numbness, weakness, or fainting , please CALL and then return immediately to the emergency department for reevaluation. Please CALL your primary care provider as soon as possible for reassessment and reevaluation. Additionally out of an abundance of precaution I would recommend that you self quarantine your family members as well. I would also contact your workplace and inform them of our high level of concern and current pending test results. If you have any questions in general did not hesitate to contact us here in the ED. As always, it was a pleasure par ticipating in your medical care today. Stand Alone Forms: Work Release Referrals: Fco Luna [Primary Care Provider] - Discharge Data Discharge Date/Time-TO BE ENTERED AT DEPARTURE: 07/09/19 02:45 Medical Decision Making 44-year-old female with no significant past medical history except for tobacco abuse, who presents today for evaluation of shortness of breath. Patient states that starting today she has had fever, chills, dry nonproductive cough, and shortness of breath. She denies any headache or neck pain. 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 She does note at her work that there are some other people have similar symptomatology, but not as severe as hers. She denies any hemoptysis. Denies PE risk factors such as recent long car rides, immobilization, recent surgery, prior history of DVT or PE, family history of PE or DVT, morbid obesity, exogenous estrogen and smoking, hemoptysis, history of cancer. She has no other complaints at this time. No other modifying factors. She did get her flu shot this year. Physical exam demonstrates Mild respiratory difficulty, 3-4 word sentences, slightly rapid breathing but no hypoxemia. Lung sounds demonstrate minimal diffuse crackles throughout, minimal wheezes in the bases. No rhonchi. Limited bedside portable ultrasound shows no B-lines or consolidation that I can appreciate. No evidence of significant effusion. In spite of these findings the patient looks notably clinically well, and does not demonstrate evidence of significant respiratory distress, significant or severe illness, or sepsis. However with the patient's recent contact, as well as concerning an atypical symptomatology I do feel that she certainly falls within the indications for covered 19 testing. additionally patient currently does not demonstrate symptoms indicative of admission or further observation here. We will test for influenza, get a chest x-ray, and given inhaler for home use. Will monitor closely and reassess. 3 AM Influenza testing has returned negative. Chest x-ray per virtual radiology demonstrates no evidence of effusion, consolidation, or pulmonary edema. The patient is clinically not in ARDS at this time. After breathing treatments from the inhaler the patient is feeling much better. Her conversational dyspnea is notably improved. Repeat lung sounds demonstrate reduction in wheezes. Minimal crackles still present. Evaluating the patient's entire clinical picture, and CDC recommendations, the patient at this time does appear to be clinically stable to be discharged home as there is no current clinical indication for admission. I did contact the [facility], discussed the scenario, they to agree that Covid testing is indicated. Swabs will be sent. Out of concern with the patient's recent contacts, atypical clinical symptoms meriting testing and concern for covid 19, I have recommended that the patient perform a 14-day self quarantine. I have also recommended the same for her 2 children. I have recommended to the patient wearing of a mask for the next 14 days, as well as good handwashing te chniques. I have extensively reviewed the treatment plan and discharge instructions with the patient. I have addressed all patient concerns at this time. The patient was made aware of what symptoms to monitor for that would warrant a return to the emergency department. I also discussed the importance of calling the patient's PCP, as well as the ED for any concerns or prior to return. CDC guidelines for appropriate self quarantine techniques at home were also given to the patient. Discussed the plan with the patient, they demonstrate verbal understanding and agreement with our assessment and plan at this time. FINDINGS: Lungs: Nonspecific imag-pr-tnzopezh hyperinflation. No consolidation. Pleural space: Unremarkable. No pleural effusion. No pneumothorax. Heart/Mediastinum: Unremarkable. No cardiomegaly. Bones/joints: Unremarkable. IMPRESSION: 1. Nonspecific ofoc-xq-ohcudjkh hyperinflation. 2. No focal lung infiltrates or consolidation. 3. No pleural effusions. Thank you for allowing us to participate in the care of your patient. Dictated and Authenticated by: Marcelo Whitfield MD 07/09/2019 1:56 AM Eastern Time ([place] & [place]) HPI General Date/Time Provider Initiated Documentation: 07/09/19 01:03 . HPI Narrative: 44-year-old female with no significant past medical history except for tobacco abuse, who presents today for evaluation of shortness of breath. Patient states that starting today she has had fever, chills, dry nonproductive cough, and shortness of breath. She denies any headache or neck pain. Today she also received an email that 1 of her coworkers whom she was in a direct board meeting with and shook hands with was recently at the [email or web address] hotel, and was subsequently diagnosed with coronavirus. She does note at her work that there are some other people have similar symptomatology, but not as severe as hers. She denies any hemoptysis. Denies PE risk factors such as recent long car rides, immobilization, recent surgery, prior history of DVT or PE, family history of PE or DVT, morbid obesity, exogenous estrogen and smoking, hemoptysis, history of cancer. She has no other complaints at this time. No other modifying factors. She did get her flu shot this year. Related Data Home Medications Medication Instructions Recorded Confirmed dextroamphetamine-amphetamine 30 mg PO DAILY tab-cap 06/30/14 07/09/19 [Adderall] Allergies Allergy/AdvReac Type Severity Reaction Status Date / Time Penicillins Allergy Mild RASH Unverified 07/09/19 01:19 POULTRY AdvReac Mild VOMIT Uncoded 07/09/19 01:19 General Stated Complaint: RespSymp JODIE: 4 Review of Systems All systems reviewed & are unremarkable except as noted in HPI and below PFSH Family History Mother No problems noted. Father No problems noted. Brother No problems noted. Grandfather No problems noted. Grandfather No problems noted. Grandmother No problems noted. Grandmother No problems noted. Social History Smoking/Tobacco Use Status: Current every day Tobacco Type: cigarettes Alcohol Intake: never Drug use: Never Substance use type: does not use Do you feel safe at home: Yes Do you feel safe in your relationship?: Yes Exam Narrative Exam Narrative: 1.Const: Well-nourished, Well-developed, appearing stated age 2.Eyes: PERRL, no conjunctival injection, and symmetrical lids. 3.ENT: Atraumatic external nose and ears. Moist MM. Neck: Symmetric, trachea midline, No thyromegaly. Patient demonstrates good movement of cervical neck. There is no nuchal rigidity, no nuchal tenderness. Patient is able to flex the neck without any difficulty or significant pain. Negative Kernig's and Brudzinski sign. 4.CVS: +S1/S2, No murmurs or gallops. Peripheral pulses 2+ and equal in all extremities. Brisk capillary refill in all extremities. 5.RESP: Mild respiratory difficulty, 3-4 word sentences, slightly rapid breathing but no hypoxemia. Lung sounds demonstrate minimal diffuse crackles throughout, minimal wheezes in the bases. No rhonchi. Limited bedside portable ultrasound shows no B-lines or consolidation that I can appreciate. No evidence of significant effusion. 6.GI: Soft, Nontender/Nondistended, No hepatosplenomegaly. No guarding or rebound. 7.MSK: Normocephalic/Atraumatic, Extremities w/o deformity or ttp No cyanosis or clubbing, Normal movement of all extremities 8.Skin: Warm, Dry. No rashes or lesions. 9.Neuro: flue blower II-XII grossly intact. Sensation grossly intact, no focal neurologic deficits. 10.Psych: (AAO) x3. Appropriate mood and affect Course Vital Signs Vital signs: Vital Signs Temperature 36.5 C 07/09/19 01:07 Pulse 89 07/09/19 01:07 Respiratory Rate 18 07/09/19 01:07 Blood Pressure 122/83 07/09/19 01:07 Pulse Oximetry 19 L 07/09/19 01:07 Temperature 36.5 C 07/09/19 01:07 Temperature Source Skin 07/09/19 01:07 Pulse 89 07/09/19 01:07 Respiratory Rate 18 07/09/19 01:07 Respiratory Effort Non-Labored 07/09/19 01:20 Blood Pressure 122/83 07/09/19 01:07 Pulse Oximetry 19 L 07/09/19 01:07 Pain Level 1 07/09/19 01:07
--- NOTE | 2019-07-09 01:46 | DI.RAD_ITS ---
EXAM: XR PORTABLE CHEST AP CLINICAL HISTORY: SOB, cough, suspect COVID19 TECHNIQUE: 2D digital imaging was performed. COMPARISON: No exams were available for comparison FINDINGS: MEDIASTINUM: Normal. HEART: Normal. PULMONARY VASCULATURE: Normal. LUNGS: Clear. Mild hyperinflation of the lungs. PLEURAL SPACE: No pleural effusion or pneumothorax. BONE:Normal. OTHER FINDINGS:Normal. IMPRESSION: Mild hyperinflation of the lungs. No focal consolidating infiltrates. DATA REPOSITORY: RADIATION DOSE DELIVERED:
--- NOTE | 2019-07-09 01:57 | DI.VRAD_ITS ---
PROCEDURE INFORMATION: Exam: XR Chest, 1 View Exam date and time: 07/09/2019 1:26 AM Age: 44 years old Clinical indication: Cough and shortness of breath; Additional info: Recent conference, cough, SOB, ? covid19 TECHNIQUE: Imaging protocol: XR of the chest Views: 1 view. COMPARISON: CR CHEST 2 VIEWS PA,LAT 11/02/2014 4:43 PM FINDINGS: Lungs: Nonspecific bmkr-kf-nlakkote hyperinflation. No consolidation. Pleural space: Unremarkable. No pleural effusion. No pneumothorax. Heart/Mediastinum: Unremarkable. No cardiomegaly. Bones/joints: Unremarkable. IMPRESSION: 1. Nonspecific vuxd-hz-rbtacrwl hyperinflation. 2. No focal lung infiltrates or consolidation. 3. No pleural effusions. Dictated and Authenticated by: Marcelo Whitfield MD. Ordering:MADDY Ardon MD
[2019-07-09] MEDS: Albuterol HFA 8 GM 60 PUFF INH IH (02:18)
[2019-07-09 02:22] VITALS: PULSE 87; O2SAT 98
[2019-07-12 08:28] LABS: COVID-19 RT-PCR Result Not Detected
== END 2019-07-09 02:45 | disposition home or self-care (01) ==
PROVIDERS: Emergency Provider Student in an Organized Health Care Education/Training Program; PCP Specialist/Technologist Athletic Trainer
DX: J06.9 Acute upper respiratory infection, unspecified (principal); B34.9 Viral infection, unspecified; R50.9 Fever, unspecified; R05 Cough; F17.210 Nicotine dependence, cigarettes, uncomplicated
CPT/HCPCS: 87449; 99283; U0003; 71045

== ENCOUNTER 2019-10-09 06:57 | Emergency (ER) | payer MEDICAID, SELFPAY ==
[2019-10-09 07:04] VITALS: BP 118/81; PULSE 97; RESP 16; TEMP 36.6; O2SAT 98
--- NOTE | 2019-10-09 07:15 | DI.RAD_ITS ---
EXAM: XR PORTABLE CHEST AP CLINICAL HISTORY: cough, SOB TECHNIQUE: 2D digital imaging was performed. COMPARISON: CR CHEST 2 VIEWS PA,LAT from 11/02/2014 CR,XR XR PORTABLE CHEST AP from 07/09/2019 FINDINGS: LUNGS: Clear. No pleural abnormality seen.Hyperinflation. No pneumothorax. HEART: Normal. MEDIASTINUM: Normal. IMPRESSION: No acute pulmonary findings. DATA REPOSITORY: RADIATION DOSE DELIVERED:
[2019-10-09] MEDS: Albuterol HFA 8 GM 60 PUFF INH IH (07:31)
[2019-10-09] MEDS: Inhaler, Assist Device 1 EACH MC (07:33)
--- NOTE | 2019-10-09 07:35 | ED.GENADUL_ITS ---
Discharge Plan Disposition Patient Disposition: STILL A PATIENT Condition: Good Discharge Details Chief Complaint: RespSymp Clinical Impression: Bronchitis Primary Care Provider: Fco Luna ED Provider: Duglas Jackson Home Meds and New Rx's Prescriptions: New albuterol sulfate 90 mcg/actuation aerosol powdr breath activated 2 inh IH Q6H PRNQty: 1 RF: 0 Continued dextroamphetamine-amphetamine [Adderall] 10 MG tablet 30 mg PO DAILY RF: 0 Discharge Instructions Instructions: Acute Bronchitis (ED) Additional Instructions: At this time your symptoms are consistent with a viral upper respiratory infection. Please use your inhaler, 2 puffs every 4-6 hours as needed for improvement of your symptoms. Please do your best to stop smoking completely. It is very unlikely that this is from coronavirus. Out of an abundance of precaution it would be reasonable to self quarantine yourself for a total of 14 days or until completely symptom-free for greater than 24-48 hours. It would be prudent to wear a mask at all times, always wash your hands frequently, follow- up closely with your primary care provider. You can always call their office first. If you notice any worsening of your symptoms, or any new symptoms such as vomiting, diarrhea, fever, chills, shortness of breath, chest pain, numbness, weakness, or fainting, please CALL and then return immediately to the emergency department for reevaluation. Please CALL first and then follow up with your primary care provider as soon as possible for reassessment and reevaluation. We will help facilitate testing for you at the coronavirus test center here. Please contact the numbers provided. As always, it was a pleasure participating in your medical care today. Referrals: Fco Luna [Primary Care Provider] - Medical Decision Making 44-year-old female with a past medical history of tobacco abuse who presents today for evaluation of shortness of breath. Patient states that she was at a protest in [place] 36 hours ago, then yesterday she began to notice mild cough wheezing shortness of breath. She recently just ran out of her inhaler. She denies any associated fever, chills, chest pain, chest heaviness, arm neck shoulder pain, bandlike sensation around the chest, exertional chest discomfort. She denies fever or chills. Denies PE risk factors such as recent long car rides, immobilization, recent surgery, prior history of DVT or PE, family history of PE or DVT, morbid obesity, exogenous estrogen and smoking, hemoptysis, history of cancer. Of note I did see and evaluate the patient 3 months ago, with a near identical presentation. At that time was concern for coronavirus, she was treated with an inhaler and had complete resolution of her symptoms, her coronavirus testing was negative at that time. Physical exam at this time demonstrates mild wheezes throughout, no hypoxemia, no tachypnea, no signs of respiratory distress whatsoever. Signs and symptoms appearing consistent with PE, pneumonia, or severe or significant coronavirus infection. I suspect her symptoms are likely from mild asthma/bronchitis versus the beginnings of COPD/emphysema. She has run out of her inhaler, which is been notably beneficial in the past. This time we will get a chest x-ray, do 4 puffs with the inhaler, monitor closely and reassess. Will set up outpatient coronavirus testing however I do feel that likelihood for coronavirus is low this clinical setting. No current indication for significant steroids. Patient will be signed out to my colleague Dr. Kang for reassessment after imaging results have returned. HPI General Date/Time Provider Initiated Documentation: 10/09/19 07:09 . HPI Narrative: 44-year-old female with a past medical history of tobacco abuse who presents today for evaluation of shortness of breath. Patient states that she was at a protest in [place] 36 hours ago, then yesterday she began to notice mild cough wheezing shortness of breath. She recently just ran out of her inhaler. She denies any associated fever, chills, chest pain, chest heaviness, arm neck shoulder pain, bandlike sensation around the chest, exertional chest discomfort. She denies fever or chills. Denies PE risk factors such as recent long car rides, immobilization, recent surgery, prior history of DVT or PE, family history of PE or DVT, morbid obesity, exogenous estrogen and smoking, hemoptysis, history of cancer. Of note I did see and evaluate the patient 3 months ago, with a near identical presentation. At that time was concern for coronavirus, she was treated with an inhaler and had complete resolution of her symptoms, her coronavirus testing was negative at that time. Patient denies any other complaints at this time. No other modifying factors. Related Data Home Medications Medication Instructions Recorded Confirmed dextroamphetamine-amphetamine 30 mg PO DAILY tab-cap 06/30/14 10/09/19 [Adderall] albuterol sulfate 2 inh IH Q6H PRN #1 each 10/09/19 Previous Rx's Medication Instructions Recorded albuterol sulfate 2 inh IH Q6H PRN #1 each 10/09/19 Allergies Allergy/AdvReac Type Severity Reaction Status Date / Time Penicillins Allergy Mild RASH Unverified 10/09/19 07:10 POULTRY AdvReac Mild VOMIT Uncoded 10/09/19 07:10 General Stated Complaint: RespSymp JODIE: 3 Review of Systems All systems reviewed & are unremarkable except as noted in HPI and below PFSH Medical History Acne ADHD (Chronic) Cystocele, grade 2 2015 Urinary incontinence mild ABILIO Surgical History Tonsillectomy and adenoidectomy (~1992) Family History Mother No problems noted. Father No problems noted. Brother No problems noted. Grandfather No problems noted. Grandfather No problems noted. Grandmother No problems noted. Grandmother No problems noted. Social History Smoking/Tobacco Use Status: Current every day Tobacco Type: cigarettes Alcohol Intake: never Drug use: Never Substance use type: does not use Details: x 3 months trying to quit smoking--no cigatettes x 2 days Do you feel safe at home: Yes Do you feel safe in your relationship?: Yes Exam Narrative Exam Narrative: 1.Const: Well-nourished, Well-developed, appearing stated age 2.Eyes: PERRL, no conjunctival injection, and symmetrical lids. 3.ENT: Atraumatic external nose and ears. Moist MM. Neck: Symmetric, trachea midline, No thyromegaly. 4.CVS: +S1/S2, No murmurs or gallops. Peripheral pulses 2+ and equal in all extremities. Brisk capillary refill in all extremities. 5.RESP: Unlabored respiratory effort. No tachypnea. No hypoxemia. Mild wheezes noted throughout. No rhonchi. No crackles. 6.GI: Soft, Nontender/Nondistended, No hepatosplenomegaly. No guarding or rebound. 7.MSK: Normocephalic/Atraumatic, Extremities w/o deformity or ttp No cyanosis or clubbing, Normal movement of all extremities 8.Skin: Warm, Dry. No rashes or lesions. 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 Sensation grossly intact, no focal neurologic deficits. 10.Psych: (AAO) x3. Appropriate mood and affect Course Vital Signs Vital signs: Vital Signs Temperature 36.6 C 10/09/19 07:04 Pulse 97 H 10/09/19 07:04 Respiratory Rate 16 10/09/19 07:04 Blood Pressure 118/81 10/09/19 07:04 Pulse Oximetry 98 10/09/19 07:04 Temperature 36.6 C 10/09/19 07:04 Temperature Source Temporal Artery Scan 10/09/19 07:04 Pulse 97 H 10/09/19 07:04 Respiratory Rate 16 10/09/19 07:04 Respiratory Effort Non-Labored 10/09/19 07:11 Respiratory Depth Normal 10/09/19 07:11 Blood Pressure 118/81 10/09/19 07:04 Blood Pressure Position Sitting 10/09/19 07:04 Pulse Oximetry 98 10/09/19 07:04 Oxygen Delivery Method Room Air 10/09/19 07:04 Oxygen Flow Rate 0 10/09/19 07:04 Pain Level 0 10/09/19 07:04
--- NOTE | 2019-10-09 08:00 | DI.VRAD_ITS ---
PROCEDURE INFORMATION: Exam: XR Chest, 1 View Exam date and time: 10/09/2019 7:36 AM Age: 44 years old Clinical indication: Cough and shortness of breath; Patient HX: PT recently quit smoking TECHNIQUE: Imaging protocol: XR of the chest Views: 1 view. COMPARISON: CR XR PORTABLE CHEST AP 07/09/2019 1:37 AM FINDINGS: Lungs: Unremarkable. No consolidation. Pleural space: Unremarkable. No pleural effusion. No pneumothorax. Heart/Mediastinum: Unremarkable. No cardiomegaly. Bones/joints: Unremarkable. IMPRESSION: No acute findings. Dictated and Authenticated by: Jennie Talley MD. Ordering:MADDY Ardon MD
== END 2019-10-09 08:00 | disposition still patient (30) ==
LOC: ER 07:54
PROVIDERS: Emergency Provider Student in an Organized Health Care Education/Training Program; PCP Specialist/Technologist Athletic Trainer
DX: J20.9 Acute bronchitis, unspecified (principal); F17.210 Nicotine dependence, cigarettes, uncomplicated
CPT/HCPCS: 99283; 71045

== ENCOUNTER 2020-01-09 02:48 | Emergency (ER) | payer MEDICAID, SELFPAY ==
[2020-01-09 02:51] VITALS: BP 149/102; PULSE 97; RESP 20; TEMP 36.4; O2SAT 96
--- NOTE | 2020-01-09 02:55 | W.ED.GENAD ---
Discharge Plan Disposition Patient Disposition: HOME Condition: Good Discharge Details Clinical Impression: Reactive airway disease with wheezing Primary Care Provider: Fco Luna ED Provider: Richy Fowler Home Meds and New Rx's Prescriptions: Continued dextroamphetamine-amphetamine [Adderall] 10 MG tablet 40 mg PO DAILY RF: 0 albuterol sulfate 90 mcg/actuation aerosol powdr breath activated 2 inh IH Q6H PRNQty: 1 RF: 0 Discharge Instructions Instructions: Reactive Airways Disease (ED) Additional Instructions: Use the inhaler with spacer every 4-6 hours if necessary. Otherwise use as needed. If requiring frequent use consider follow-up with primary for steroids. If you develop significant increase short of breath, chest pain, fever you should return to ED. Referrals: Primary Care Provider [Outside] Medical Decision Making Patient with wheezing, cough and shortness of breath. No URI type symptoms. No chest pain. Will give albuterol inhaler 4 puffs here and reevaluate. I do not think she requires imaging or laboratory studies at this time. Would also not immediately start steroids unless she requires inhaler every 4-6 hours. She will need follow-up with primary care after the weekend for reevaluation. Patient much improved with no shortness of breath and no wheezing on exam after inhaler. Will discharge home with same. Follow-up with primary care if repeated use of inhaler for consideration of steroids. Return to ED if significant increase shortness of breath, fever, chest pain. HPI General Mode of arrival: ambulatory. Date/Time Provider Initiated Documentation: 01/09/20 02:51. Limitations to Documentation: no limitations. Information obtained by: patient, RN notes reviewed and old records reviewed. HPI Narrative: Patient presents to ED with complaint of shortness of breath, wheezing and cough. She has been pretty much a lifelong smoker with breaks here and there. Recently has stopped smoking about 4 days ago. She has had wheezing and cough since stopping. She denies having fever, earache, sore throat, runny nose. She denies chest pain or pressure. She has not traveled out of [place] nor had any [id number] visitors. She has had no exposure to COVID that she is aware of. She does not feel ill otherwise. She has had inhalers in the past which worked well. She does not have one currently and primary care not able to see her until next week. She has been unable to sleep because of the cough and shortness of breath and comes in here. Related Data Home Medications Medication Instructions Recorded Confirmed dextroamphetamine-amphetamine 40 mg PO DAILY tab-cap 06/30/14 01/09/20 [Adderall] albuterol sulfate 2 inh IH Q6H PRN #1 each 01/09/20 Previous Rx's Medication Instructions Recorded albuterol sulfate 2 inh IH Q6H PRN #1 each 01/09/20 Allergies Allergy/AdvReac Type Severity Reaction Status Date / Time Penicillins Allergy Mild RASH Unverified 01/09/20 02:59 POULTRY AdvReac Mild VOMIT Uncoded 01/09/20 02:59 General OJDIE: 3 Review of Systems Narrative: As documented in HPI otherwise negative as below. Const: no fever, chills, weakness Resp: no pleuritic pain CV: no CP, diaphoresis, edema, syncope GI: no abdominal pain, nausea, vomiting, diarrhea Neuro: no headache, numbness, focal weakness, confusion [facility] Medical History (Updated 01/09/20 @ 03:19 by Richy Fowler MD) Acne ADHD Cystocele, grade 2 2015 Urinary incontinence mild ABILIO Surgical History Tonsillectomy and adenoidectomy (~1992) Family History Mother No problems noted. Father No problems noted. Brother No problems noted. Grandfather No problems noted. Grandfather No problems noted. Grandmother No problems noted. Grandmother No problems noted. Social History Smoking/Tobacco Use Status: Former Tobacco Use Alcohol Intake: never Drug use: Never Substance use type: does not use Details: x 3 months trying to quit smoking--no cigatettes x 2 days Do you feel safe at home: Yes Do you feel safe in your relationship?: Yes Exam Narrative Exam Narrative: Vitals: Afebrile. Slight tachycardia. Elevated blood pressure. Normal O2 saturations. Const: WDWN female in NAD. Eyes: Normal conjunctiva and sclera. Neck: Supple. Trachea midline. Lungs: A little tachypneic and increased work of breathing. No distress. Lungs have diffuse wheezing throughout but good air exchange. Cor: RRR without murmur/gallop. Neuro: A+O x 3. Normal speech, mentation, gait. Cranial nerves II - XII grossly intact. No gross motor or sensory deficit.
[2020-01-09] MEDS: Inhaler, Assist Device 1 EACH MC (03:13)
[2020-01-09 03:25] VITALS: BP 125/88; PULSE 86; RESP 20; O2SAT 96
== END 2020-01-09 03:25 | disposition home or self-care (01) ==
LOC: ER 03:21
PROVIDERS: Emergency Provider Emergency Medicine; PCP Specialist/Technologist Athletic Trainer
DX: J45.998 Other asthma (principal); R06.02 Shortness of breath; F17.210 Nicotine dependence, cigarettes, uncomplicated
CPT/HCPCS: 99283

== ENCOUNTER 2020-06-23 12:57 | Outpatient (REF) | payer MEDICAID, SELFPAY ==
[2020-06-27 13:17] LABS: Amphetamine 2782 ng/mL (Cutoff: 25); Amphetamines Interpretation Positive.; MDA (Ecstasy Metabolite) Negative ng/mL (Cutoff: 25); MDMA (Ecstasy) Negative ng/mL (Cutoff: 25); Methamphetamine Negative ng/mL (Cutoff: 25); Phentermine Negative ng/mL (Cutoff: 25); Pseudoephedrine/Ephedrine Negative ng/mL (Cutoff: 25)
[2020-06-28 07:33] LABS: 2-OH-Ethyl-Flurazepam Negative ng/mL (Cutoff: 10); 7-NH-Clonazepam Negative ng/mL (Cutoff: 10); 7-NH-Flunitrazepam Negative ng/mL (Cutoff: 10); Alpha OH-Alprazolam Negative ng/mL (Cutoff: 10); Alpha-OH Midazolam Negative ng/mL (Cutoff: 10); Alpha-OH-Triazolam Negative ng/mL (Cutoff: 10); Alprazolam Negative ng/mL (Cutoff: 10); Benzodiazepines Interpretation Positive.; Chlordiazepoxide Negative ng/mL (Cutoff: 10); Clobazam Negative ng/mL (Cutoff: 10); Clonazepam Negative ng/mL (Cutoff: 10); Diazepam Negative ng/mL (Cutoff: 10); Flurazepam Negative ng/mL (Cutoff: 10); Lorazepam 214 ng/mL (Cutoff: 10); Midazolam Negative ng/mL (Cutoff: 10); N-Desmethylclobazam Negative ng/mL (Cutoff: 10); Prazepam Negative ng/mL (Cutoff: 10); Temazepam Negative ng/mL (Cutoff: 10); Triazolam Negative ng/mL (Cutoff: 10); Zolpidem Carboxylic acid Negative ng/mL (Cutoff: 10)
== END 2020-06-23 12:58 | disposition home or self-care (01) ==
LOC: NCHCN 12:57
PROVIDERS: PCP Specialist/Technologist Athletic Trainer; Visit Provider Nurse Practitioner Family
DX: Z51.81 Encounter for therapeutic drug level monitoring (principal)
CPT/HCPCS: 80324; 80346

== ENCOUNTER 2020-12-19 15:35 | Outpatient (CLI) | payer MEDICAID, SELFPAY ==
[2020-12-19 15:59] LABS: MCH 18.1 pg (27.0-33.0); MCHC 26.1 % (32.0-36.0); MCV 69.3 fL (80-95); MPV 10.2 fL (8.0-11.0); Platelet Count 388 10^3/uL (130-400); RBC 2.93 10^6/uL (3.93-5.22); RDW 18.6 % (11.7-14.6); RDW-SD 45.2 fL; WBC 6.94 10^3/uL (4.4-10.8)
[2020-12-19 16:08] LABS: HCT 20.3 % (36.0-46.0)
[2020-12-19 16:12] LABS: HGB 5.3 g/dL (11.2-15.7)
[2020-12-19 16:18] LABS: Abs Immature Grans 0.03 10^3/uL (0.0-0.06); Absolute Basophil Count 0.07 10^3/uL (0.0-0.2); Absolute Eosinophil Count 0.47 10^3/uL (0.0-0.7); Absolute Lymphocyte Count 2.25 10^3/uL (1.2-3.4); Absolute Monocyte Count 0.52 10^3/uL (0.1-0.8); Absolute Neutrophil Count 3.57 10^3/uL (1.2-6.7); Eosinophils % 6.8; Immature Grans % 0.4; Lymphocytes % 32.6; Monocytes % 7.5; Neutrophils % 51.7
[2020-12-19 16:24] LABS: TSH (W/Ref FT4) 2.13 uIU/mL (0.36-3.74)
[2020-12-19 23:17] LABS: Anisocytosis 2+; Diff Comment RBC Morph Reviewed
[2020-12-19 23:18] LABS: Hypochromasia 3+; Microcytosis 3+
[2020-12-21 15:30] LABS: Chlamydia Result Indeterminate (Negative); GC Result Indeterminate (Negative)
== END 2020-12-19 15:36 | disposition home or self-care (01) ==
LOC: LBO 15:36
PROVIDERS: PCP Student in an Organized Health Care Education/Training Program; Visit Provider Nurse Practitioner Family
DX: N93.9 Abnormal uterine and vaginal bleeding, unspecified (principal); Z11.3 Encounter for screening for infections with a predominantly sexual mode of transmission
CPT/HCPCS: 36415; 85027; 87491; 87591; 84443; 85007

== ENCOUNTER 2020-12-20 07:53 | Outpatient (RCR) | payer MEDICAID, SELFPAY ==
[2020-12-20] VITALS (7 sets, daily range): BP systolic 110–125; BP diastolic 74–82; PULSE 86–96; RESP 17; TEMP 36.6–36.9; O2SAT 100
[2020-12-20] MEDS: Acetaminophen 325 MG TAB 650 MG PO (09:26)
[2020-12-20] MEDS: diphenhydrAMINE 25 MG CAP (09:26)
[2020-12-20] MEDS: Normal Saline Flush 10 ML SYR IVP (09:26)
== END 2020-12-26 23:59 | disposition home or self-care (01) ==
LOC: INF 07:53
PROVIDERS: PCP Student in an Organized Health Care Education/Training Program; Visit Provider Obstetrics & Gynecology Gynecology
DX: N93.8 Other specified abnormal uterine and vaginal bleeding (principal)
CPT/HCPCS: 36415; 36430; 86850; 86900; 86901; 86920; 96365; 96366; P9016

== ENCOUNTER 2020-12-23 22:40 | Emergency (ER) | payer MEDICAID, SELFPAY ==
--- NOTE | 2020-12-23 22:42 | ED.GENADUL_ITS ---
Discharge Plan Disposition Patient Disposition: HOME Condition: Good Discharge Details Clinical Impression: Abnormal uterine bleeding (AUB), Anemia Primary Care Provider: Hina Lua ED Provider: Richy Fowler Home Meds and New Rx's Prescriptions: Continued dextroamphetamine-amphetamine [Adderall] 10 mg tablet 40 mg PO DAILY RF: 0 lorazepam 1 mg tablet 1 mg PO DAILY PRN (Reason: anxiety) RF: 0 trazodone 50 mg tablet 50 mg PO QHS PRNRF: 0 medroxyprogesterone 5 mg tablet 5 mg PO TID Qty: 30 RF: 2 tranexamic acid 650 mg tablet 650 mg PO BID Qty: 30 RF: 0 albuterol sulfate 90 mcg/actuation aerosol powdr breath activated 2 inh IH Q6H PRNQty: 1 RF: 0 Discharge Instructions Additional Instructions: Be sure to keep your scheduled biopsy on Friday. Contact DEPUTY ASSESSOR on Friday if any further issues. Return to ED for syncope, chest pain, shortness of breath, other concerns. Medical Decision Making We will place IV and recheck hemoglobin. Will discuss with DEPUTY ASSESSOR regarding possible dose of IV TXA. Depending on hemoglobin value may or may not require repeat transfusion. Patient hemoglobin tonight is 7.2. Due to to her being symptomatic and still bleeding vaginally will transfuse 1 unit tonight. Discussed with DEPUTY ASSESSOR, Dr. Delvalle. We will also give 1 g of TXA intravenously. Patient has follow-up for endometrial biopsy on Friday. No issues with blood transfusion or with TXA infusion. Patient to be discharged home at this time. Keep her appointment for endometrial biopsy on Friday as scheduled. Return to ED for any problems. HPI General Mode of arrival: ambulatory . Date/Time Provider Initiated Documentation: 12/23/20 22:42 . Limitations to Documentation: no limitations . Information obtained by: patient, RN notes reviewed and old records reviewed . HPI Narrative: Patient presents to ED with heavy vaginal bleeding. Patient has been bleeding on and off for the last half month. She was seen by DEPUTY ASSESSOR earlier this week. She actually required 2 unit transfusion on the . She is on Provera 3 times a day. They prescribed TXA as well but her insurance would not cover so she is not taking it yet. She is due for endometrial biopsy next week. She is due for pelvic ultrasound in a couple of weeks. She still feels palpitations, shortness of breath, lightheadedness on and off. Tonight she had large amount of blood passed with clots. She was told by DEPUTY ASSESSOR to come to ED if that occurs just because of her fairly significant anemia to start with. She denies any chest pain or pressure. Related Data Home Medications Medication Instructions Recorded Confirmed albuterol sulfate 2 inh IH Q6H PRN #1 each 01/09/20 dextroamphetamine-amphetamine 10 40 mg PO DAILY tab-cap 11/27/20 mg tablet lorazepam 1 mg tablet 1 mg PO DAILY PRN 11/27/20 trazodone 50 mg tablet 50 mg PO QHS PRN 12/19/20 medroxyprogesterone 5 mg tablet 5 mg PO TID #30 tab 12/22/20 tranexamic acid 650 mg tablet 650 mg PO BID #30 tab 12/22/20 Previous Rx's Medication Instructions Recorded albuterol sulfate 2 inh IH Q6H PRN #1 each 01/09/20 medroxyprogesterone 5 mg tablet 5 mg PO TID #30 tab 12/22/20 tranexamic acid 650 mg tablet 650 mg PO BID #30 tab 12/22/20 Allergies Allergy/AdvReac Type Severity Reaction Status Date / Time Penicillins Allergy Mild RASH Unverified 12/23/20 22:53 POULTRY AdvReac Mild VOMIT Uncoded 12/23/20 22:53 General JODIE: 3 Review of Systems Narrative: As documented in HPI otherwise negative as below. Const: no fever, chills, weakness Resp: no cough, pleuritic pain CV: no CP, diaphoresis, edema, syncope GI: no abdominal pain, nausea, vomiting, diarrhea Neuro: no headache, numbness, focal weakness, confusion PFSH Medical History Acne ADHD Anemia Cystocele, grade 2 2015 Urinary incontinence mild ABILIO Surgical History History of tubal ligation (~03/2018) Tonsillectomy and adenoidectomy (~1992) Family History Mother Anxiety Father Depression Anxiety Social History Smoking/Tobacco Use Status: Current-Occasional Tobacco Type: cigarettes Tobacco: How many years used: 20 Quit status: has quit before Smoking risk assessment performed?: Yes Alcohol Intake: never Drug use: Never Substance use type: does not use Details: x 3 months trying to quit smoking--no cigatettes x 2 days Adopted: No Caregiver/Support person: No Foster care: No Household members: children Number of Children: 2 Communication Needs: None Education Level: high school Do you need help understanding health information?: Never current occupation: unemployed Pets and animals: Yes (1) Pets and animals: cat(s) Sexually active: Yes Do you think of yourself as: straight/heterosexual Current gender identity: female What is your relationship status?: How often do you talk on the phone with friends or family?: once per week How often do you get together with friends or relatives?: once per week Do you belong to any clubs or organized social groups?: no Panel score (0-1 are the most socially isolated patients): 0 What type of physical activity do you participate in: walking Duration: 30-45 minutes/day Frequency: daily Taty/Yazdanism: None Special taty needs: No Seatbelt use: always Helmet use: Yes Helmet use: always Drive intox or ride w/intox [employer] delivery driver: No Do you feel safe at home: Yes Do you feel safe in your relationship?: Yes Exam Narrative Exam Narrative: Const: WDWN female in NAD. HEENT: NC/AT. Normal facial exam. Eyes: Normal conjunctiva and sclera. Neck: Supple. Trachea midline. Lungs: Normal respiratory effort. Lungs are clear. Cor: RRR without murmur/gallop. Good radial pulses. Pelvic: Deferred Neuro: A+O x 3. Normal speech, mentation, gait. Cranial nerves II - XII grossly intact. No gross motor or sensory deficit. Ext: No C/C/E. Skin: Warm and dry.
[2020-12-23 22:47] VITALS: BP 100/73; PULSE 94; RESP 16; TEMP 36.6; O2SAT 99
[2020-12-23 23:18] LABS: HCT 26.1 % (36.0-46.0); HGB 7.2 g/dL (11.2-15.7)
[2020-12-23 23:30] VITALS: BP 114/62; PULSE 86; RESP 18; O2SAT 100
[2020-12-24] VITALS (7 sets, daily range): BP systolic 107–124; BP diastolic 63–75; PULSE 83–94; RESP 14–18; TEMP 36.4–36.5; O2SAT 100
== END 2020-12-24 02:15 | disposition home or self-care (01) ==
PROVIDERS: Emergency Provider Emergency Medicine; PCP Student in an Organized Health Care Education/Training Program
DX: N93.8 Other specified abnormal uterine and vaginal bleeding (principal); D64.9 Anemia, unspecified
CPT/HCPCS: 36415; 86850; 86900; 86901; 86920; 96374; 99284; 85014; 85018; P9016

== ENCOUNTER 2020-12-26 11:32 | Outpatient (REF) | payer MEDICAID, SELFPAY ==
--- NOTE | 2020-12-26 09:30 | ENDOMET_PTH ---
PATIENT: Collette Morales LOC: [facility] U#:[id number] AGE/SX: 45/F ROOM: RE12/26/[address]: India Alvarado MD : 1975 BED: DIS: 12/26/2020 SPEC #: [id number] RECD: 12/26/20 12:37 STATUS: MANDA REQ #: [id number] BENITO: 12/26/20 09:[address]: India Alvarado DEPT: Surgical Specimen RECD BY: Alma Coles ENTERED: 12/26/20 12:37 SP TYPE: Endomet OTHR DR: Hina Lua DO Tissues: 1 - ENDOMETRIUM BX/CURRETTE Procedures: GROSS AND MICRO LEVEL 4 Comments: [id number] (INSUFFICIENT FOR DIAGNOSIS)
== END 2020-12-26 11:33 | disposition home or self-care (01) ==
LOC: LBN 11:32
PROVIDERS: PCP Student in an Organized Health Care Education/Training Program; Visit Provider Obstetrics & Gynecology
DX: R30.0 Dysuria (principal); N93.8 Other specified abnormal uterine and vaginal bleeding
CPT/HCPCS: 88305; 87086

== ENCOUNTER 2021-01-10 01:29 | Outpatient (CLI) | payer MEDICAID, SELFPAY ==
--- NOTE | 2021-01-10 06:45 | DI.US_ITS ---
Exam(s) US PELVIS TRANSVAGINAL EXAM: US PELVIS TRANSVAGINAL CLINICAL HISTORY: abnormal bleeding, N93.9. TECHNIQUE: Transabdominal and transvaginal pelvic ultrasound was performed using standard protocol. COMPARISON: No previous for comparison. FINDINGS: KIDNEYS: Kidneys are symmetric in size. No evidence of renal calculi. No evidence of hydronephrosis. No renal mass or cyst identified. UTERUS: The uterus is enlarged and heterogeneous with at least 3 discrete uterine fibroids. Position: Anteverted. Size: 11.8 long by 7.2 AP by 10.6 transverse cm Endometrium: Obscured by the large submucosal uterine fibroid and could not be evaluated. Myometrium: At least 3 hypoechoic masses are seen. The largest is in the submucosal region posterior ly in the body measuring 6 x 5.5 x 6.5 cm. There is an anterior body uterine fibroid measuring 4.4 x 4 x 3.4 cm. There is a small subserosal fibroid seen on the left. Cervix: Unremarkable. OVARIES: The right ovary was not visualized transabdominally or transvaginally. No right adnexal mas s is seen. Left: 3 x 2.2 x 1.9 cm Cyst or mass: Small follicular cysts are present. DOPPLER: Color: Uniform flow to the left ovary. No hyperemia. Duplex: Normal ovarian arterial waveform is visualized. CUL-DE-SAC: Free fluid: None. Other: None. IMPRESSION: 1. Normal sonographic appearance of the kidneys. 2. Enlarged fibroid uterus. The 6 x 5.5 x 6.5 cm submucosal fibroid obscures endometrial evaluation. 3. The right ovary was not visualized on this examination. No suspicious right adnexal mass is seen sonographically. 4. Unremarkable left ovary. DATA REPOSITORY:
== END 2021-01-10 01:49 ==
PROVIDERS: PCP Student in an Organized Health Care Education/Training Program; Visit Provider Nurse Practitioner Family
DX: N93.9 Abnormal uterine and vaginal bleeding, unspecified (principal); N85.2 Hypertrophy of uterus
CPT/HCPCS: 76830; 76856

== ENCOUNTER 2021-01-22 02:54 | Outpatient (CLI) | payer MEDICAID, SELFPAY ==
[2021-01-22 10:41] LABS: Source Nasal/Nares
[2021-01-22 17:13] LABS: COVID-19 PCR Negative (Negative)
== END 2021-01-22 02:55 | disposition home or self-care (01) ==
LOC: LBO 02:54
PROVIDERS: PCP Student in an Organized Health Care Education/Training Program; Visit Provider Obstetrics & Gynecology
DX: Z20.822 Contact with and (suspected) exposure to COVID-19 (principal); Z01.818 Encounter for other preprocedural examination
CPT/HCPCS: 87635

== ENCOUNTER 2021-01-22 03:21 | Outpatient (CLI) | payer MEDICAID, SELFPAY | END 2021-01-22 03:22 | disposition home or self-care (01) | LOC: LBO 03:21 | PROVIDERS: PCP Student in an Organized Health Care Education/Training Program; Visit Provider Obstetrics & Gynecology | DX: N93.8 Other specified abnormal uterine and vaginal bleeding (principal); D25.9 Leiomyoma of uterus, unspecified; D64.9 Anemia, unspecified; Z01.818 Encounter for other preprocedural examination; Z01.812 Encounter for preprocedural laboratory examination | CPT/HCPCS: 36415; 85027; 86850; 86900; 86901; 86920 ==

== ENCOUNTER 2021-01-23 02:47 | Outpatient (RCR) | payer MEDICAID, SELFPAY ==
[2020-12-27 00:14] VITALS: BP 113/78; PULSE 86; RESP 17; TEMP 36.8
[2021-01-23] VITALS (9 sets, daily range): BP systolic 104–118; BP diastolic 63–82; PULSE 80–93; RESP 16; TEMP 36.7–37.3; O2SAT 100
[2021-01-23] MEDS: Acetaminophen 325 MG TAB 650 MG PO (08:17)
[2021-01-23] MEDS: diphenhydrAMINE 25 MG CAP PO (08:18)
[2021-01-23] MEDS: Normal Saline Flush 10 ML SYR IVP (08:18)
== END 2021-01-25 23:59 | disposition home or self-care (01) ==
LOC: INF 02:47
PROVIDERS: PCP Student in an Organized Health Care Education/Training Program; Visit Provider Obstetrics & Gynecology Gynecology
DX: D64.9 Anemia, unspecified (principal)
CPT/HCPCS: 36415; 36430; 85027; 86850; 86900; 86901; 86920; P9016

== ENCOUNTER 2021-01-24 11:43 | Observation (INO) | payer MEDICAID, SELFPAY ==
[2021-01-22 09:25] LABS: MCH 19.9 pg (27.0-33.0); MCHC 27.2 % (32.0-36.0); MPV 10.8 fL (8.0-11.0); Platelet Count 317 10^3/uL (130-400); RBC 2.82 10^6/uL (3.93-5.22); RDW 20.5 % (11.7-14.6); RDW-SD 54.1 fL; WBC 5.36 10^3/uL (4.4-10.8)
[2021-01-22 09:33] LABS: HCT 20.6 % (36.0-46.0); HGB 5.6 g/dL (11.2-15.7)
--- NOTE | 2021-01-23 12:32 | W.ANESPRE ---
General Info Date of Service Date Performed: 01/24/21 Height: 5 ft 8 in Weight: 89.811 kg Body Mass Index (BMI): 30.1 Surgical Procedure: Operation Date: 01/24/21 07:40 Proposed Procedures Side Surgeon p Hysterectomy Vaginal Laparoscopic Assist India Alvarado MD Meds Allergies and Home Medications Allergies Allergy/AdvReac Type Severity Reaction Status Date / Time Penicillins Allergy Mild RASH Unverified 01/24/21 06:51 POULTRY AdvReac Mild VOMIT Uncoded 01/24/21 06:51 Home Medication Medication Instructions Recorded albuterol sulfate 2 inh IH Q6H PRN #1 each 01/09/20 dextroamphetamine-amphetamine 10 40 mg PO DAILY tab-cap 11/27/20 mg tablet medroxyprogesterone 5 mg tablet 5 mg PO TID #30 tab 01/05/21 dextroamphetamine-amphetamine ER 10 mg PO DAILY cap 01/11/21 30 mg 24hr capsule,extend release PFSH Active Problems Active Problems: Problem Status Onset Code Leiomyoma D21.9 Dysmenorrhea N94.6 Anemia D64.9 Abnormal uterine bleeding (AUB) N93.9 Tobacco smoker, less than 10 cigarettes per day F17.210 Sinusitis J32.9 ADHD F90.9 Acute left otitis media H66.92 Acute suppur left otitis media w/spontan rupture of tympanic membrane H66.012 External otitis of left ear H60.92 Medical History Medical History (Updated 01/24/21 @ 06:56 by Marilu Appiah) Acne ADHD Anemia Cystocele, grade 2 2014, pt .unaware Urinary incontinence mild ABILIO, pt. unaware Surgical History Surgical History History of tubal ligation (~03/2018) Tonsillectomy and adenoidectomy (~1992) Tobacco Smoking/Tobacco Use Status: Current-Occasional Tobacco Type: cigarettes Tobacco: How many years used: 20 Passive smoking exposure: No Quit Status: has quit before Alcohol Alcohol Intake: current Alcohol intake frequency: a few times a month Substance Use Substance use: Daily Substance use type: marijuana Details: x 3 months trying to quit smoking--no cigatettes x 2 days Vital Signs and Lab Results Vital Signs Most Recent Vital Signs in EMR: Temp Pulse Resp BP Pulse Ox 36.2 C L 93 H 14 122/83 100 01/24/21 06:45 01/24/21 06:45 01/24/21 06:45 01/24/21 06:45 01/24/21 06:45 Lab Results Blood Type / Crossmatch: Patient ABO/Rh A Negative 01/22/21 08:55 01/22/21 Antibody Screen NEGATIVE 01/22/21 08:55 01/22/21 Crossmatch See Detail 01/22/21 08:55 01/22/21 Complete Blood Count: White Blood Count 5.36 10^3/uL (4.4-10.8) 01/22/21 08:55 01/22/21 Red Blood Count 2.82 10^6/uL (3.93-5.22) L 01/22/21 08:55 01/22/21 Hemoglobin 5.6 g/dL (11.2-15.7) L* 01/22/21 08:55 01/22/21 Hematocrit 20.6 % (36.0-46.0) L* 01/22/21 08:55 01/22/21 Platelet Count 317 10^3/uL (130-400) 01/22/21 08:55 01/22/21 Complete Metabolic Panel: No Data to Display Liver Function Panel: No Data to Display Coagulation Panel: No Data to Display Cardiac Panel: No Data to Display Arterial Blood Gas: No Data to Display Venous Blood Gas: No Data to Display Pancreas Panel: No Data to Display Thyroid Panel: No Data to Display Infectious Disease: Coronavirus (COVID-19)(PCR) Negative (Negative) 01/22/21 09:54 01/22/21 Coronavirus 2019 Source Nasal/Nares 01/22/21 09:54 01/22/21 Blood Cultures: No Data to Display Toxicology Panel: No Data to Display Panel: No Data to Display Anesthesia Assessment and Plan Anesthesia History Personal History: No History of Anesthesia Complications Family History: No Family History of Anesthesia Complications Exercise Tolerance Exercise Tolerance: Metabolic Equivalents>4 Pertinent Negatives Pertinent Negatives: No Symptoms of GERD, No Major Cardiovascular Symptoms or Complaints, No Major Pulmonary Symptoms or Complaints and No History of CVA/TIA Cardiac & Pulmonary Exam Cardiac Exam: Normal S1/S2 Heart Sounds Pulmonary Exam: Clear Bilateral Breath Sounds Airway Exam Known Difficult Airway: No Mallampati Class: 2 Mouth Opening: Normal (> 3cm) Thyromental Distance: Greater than 3 cm Neck Range of Motion: Full ROM Neck Circumference: Normal Teeth Condition: Normal Dentition ASA Classification ASA Score: ASA 2 Emergency Case?: No NPO Status NPO Status: NPO Clears >2 hours, Solids >8 hours Status Status: Negative HCG Anesthesia Plan Resuscitation Status: Full Code Anesthesia Technique: General Anesthesia Airway Planned: Endotracheal Tube Pain Management: Intrathecal Analgesia Monitors Used: Standard Monitors Preoperative Comments:: 46 yo female for hysterectomy due to AUB/anemia. Recent Hgb 5.7 for which she has received 2 units PRBCs. SigPMHx: adhd. Previous Anes: Mac 3 grade 2 b and bougie. Plan: GA/ETT, IT opioid for pain, +/- 2nd IV.
[2021-01-24] VITALS (17 sets, daily range): BP systolic 77–122; BP diastolic 45–83; PULSE 70–101; RESP 11–20; TEMP 36–36.7; O2SAT 96–100; BMI 30.1
[2021-01-24] MEDS: Lactated Ringers 1,000 ML 125 ML IV ×2 (07:10→12:27)
[2021-01-24] MEDS: ceFAZolin 2 GM/50 ML BAG IVPB (07:50)
[2021-01-24] MEDS: Bupivacaine 0.5% Pres-Free 30 ML VIAL (08:25)
--- NOTE | 2021-01-24 09:58 | UTER_PTH ---
PATIENT: Collette Morales LOC: OBS U#:[id number] AGE/SX: 46/F ROOM: OBS.306 RE01/24/[address]: India Alvarado MD : [id number] BED: A DIS: 01/25/2021 SPEC #: [id number] RECD: 01/24/21 12:49 STATUS: MANDA REQ #: [id number] BENITO: 01/24/21 09:[address]: India Alvarado DEPT: Surgical Specimen RECD BY: Alma Coles ENTERED: 01/24/21 12:49 SP TYPE: UTER OTHR DR: Hina Lua, Tissues: 1 - UTERUS W OR W/O OVARIES(NOT TUMOR/PROLAPSE) Procedures: GROSS AND MICRO LEVEL 5 Comments: [id number]
--- NOTE | 2021-01-24 11:49 | W.PM.OP ---
Date of service: 01/24/21 Time of Service: 11:50 Operative Note Operative Note DATE OF PROCEDURE: 01/24/21 PRE-OP DIAGNOSIS: abnormal uterine bleeding, uterine leiomyoma, anemia POST-OP DIAGNOSIS: same PROCEDURE: Laparoscopic assisted vaginal hysterectomy SURGEON: India Alvarado ASSISTING SURGEON: Mary Frederick ANESTHESIA TYPE: General LMA/ETT and Spinal Refer to Anesthesia Record ESTIMATED BLOOD LOSS: 350 PATHOLOGY: other (Uterine, cervix, fibroid) COMPLICATIONS: None Patient was transported to: PACU Patient's condition: stable Findings: Enlarged bulky uterus with multiple fibroids. There was a 5-6cm left fundal fibroid and a 1-2cm lower left pedunculated fibroid. Procedure Description: After informed consent was signed the patient was taken to the operating room and given Spinal and GET anesthesia. SCDs were placed on her legs. She was prepped and draped in the dorsal lithotomy position in the [facility]. A mcgee catheter was introduced into her bladder. A time out was performed. Exam under anesthesia revealed an enlarged, bulky uterus 14-16wk size. A speculum was placed into the vagina to expose the cervix. The anterior lip was grasped with a single tooth tenaculum. The uterus was sounded and the manipulator inserted and balloon inflated. The tenaculum and speculum were removed, gloves were changed and attention was turned to the abdomen. The infraumbilical fold was grasped and lidocaine with epi was injected at the incision site. A 10mm incision was then made with the scalpel in a vertical fashion. The edges were grasped with Allis clamps and tented up. Blunt dissection was used to reach the fascia. The fascia was grasped with a Corbin clamp x2 and incision with the scalpel. The peritoneum was entered bluntly. The trocar was then inserted and the abdomen was insufflated. next lateral ports were placed. Each location was injected with lidocaine and a 5mm incision was made with the scalpel. The trocar was inserted under direct visualization. Examination of the pelvic cavity revealed an enlarged bulky uterus with a large left fundal fibroid. First attention was turned to the right side. The ureter was identified. The round ligament was grasped with the ligasure, clamped cauterized and cut. Then the Utero-ovarian ligament was clamped, cauterized and cut. This dissection was continued down through the broad ligament to the base of the uterus. A bladder flap was created and the uterine vessels were clamped and cauterized. Attention was then turned to the left side where visualization was more difficult due to the fibroids. The ureter was visualized. The round ligament and utero-ovarian ligament were clamped cauterized and cut with the ligasure. Then the broad ligament was dissected until the small lower pedunculated fibroid was encounter. This was dissected around and it's blood supply was clamped and cauterized. The bladder flap was completed and the uterine vessels were clamped and cauterized. Attention was then turned to the vaginal approach. A speculum was placed into the vagina to expose the cervix. The cervix was grasped with a tenaculum. The ectocervix was infiltrate with lidocaine and epinephrine. Electrocautery was then used to make a circumferential incision around the cervix at the cervicovaginal junction. Sharp dissection with the maria scissors was used to dissect the bladder off the anterior aspect of the cervix. This was continued around to dissect off the uterosacral and the cardinal ligaments from the cervix. Blunt dissection was then used to further dissect the tissue off the cervix. Next the posterior cul-de-sac was entered with sharp dissection. A retractor was inserted in to the posterior cul-de-sac. Next the uterosacral ligaments were palpated, clamped and cut and suture ligated with o vicryl suture. The sutures were held with Temi clamps for later use. blunt dissection was then used to further dissect the bladder off the cervix. The cardinal ligaments were clamped, cauterized and cut with the LigaSure device. The bladder was further dissected with blunt dissection and the anterior cul-de-sac was then entered with the metzembaum scissors. A retractor was inserted into the peritoneum to retract the bladder. Next the uterine vessels and the rest of the cardinal ligaments were clamped, cauterized and cut with the LigaSure device on both sides. The parmetrium was clamped cauterized and cut until the specimen was detached completely. The uterus was grasped with a single tooth tenaculum and delivered through the posterior aspect of the incision. There was some bleeding so the Vitale culdoplasty was not performed. She also was felt to have good apical support. The uterosacral ligaments were tied together in the midline. Then the vaginal cuff was closed with a running locked suture of 0 Vicryl in a vertical fashion. Good hemostasis was noticed in the vagina. Gloves were changed and attention was turned back to the abdomen. The camera was inserted and the vaginal cuff and pedicles inspected and there was good hemostasis. The clots were suctioned and the abdomen was irrigated. Both ureters were visualized and movement was noted. The lateral ports were removed under direct visualization. The umbilical port was removed and the gas was turned off. The fascia was closed with the 0 Vicryl suture in a figure of eight fashion. The skin was closed with 4-0 vicryl. Mastisol and steristrips were placed. The patient was placed back into the supine position. She was moved to the stretcher and taken to the recovery room in stable condition.
--- NOTE | 2021-01-24 12:31 | W.ANESPOSTOP ---
Postoperative Evaluation Date, Time and Location Date Performed: 01/24/21 Time Performed: 12:31 Patient Location: Day Surgery Unit Vital Signs Most Recent Imported Vital Signs: Most Recent Vital Signs Temp Pulse Resp BP Pulse Ox 36.2 C L 75 11 L 99/45 L 99 01/24/21 12:20 01/24/21 12:20 01/24/21 12:20 01/24/21 12:20 01/24/21 12:20 Pain Score Most Recent Pain Score: Most Recent Pain Score Pain Level 0 01/24/21 12:20 Assessment Mental Status: Awake (Alert & Oriented to Patient Baseline) Airway and Respiratory Function: Patent airway with normal (patient baseline) respiratory exam Cardiovascular Function: Hemodynamically Stable Hydration Status: Adequately Hydrated Nausea & Vomiting: No Nausea or Vomiting Pain: Pt. Denies Any Pain Peripheral Nerve Block: Patient did not receive a nerve block
[2021-01-24] MEDS: diphenhydrAMINE 25 MG CAP PO ×3 (15:08→23:08)
[2021-01-24] MEDS: oxyCODONE 5 mg/Acetaminophen 325 mg TAB PO ×2 (17:06→23:07)
[2021-01-25] VITALS (11 sets, daily range): BP systolic 114–131; BP diastolic 70–84; PULSE 75–102; RESP 16–18; TEMP 36.6–37.3; O2SAT 100
[2021-01-25] MEDS: oxyCODONE 5 mg/Acetaminophen 325 mg TAB PO ×3 (07:19→17:44)
[2021-01-25] MEDS: diphenhydrAMINE 25 MG CAP PO ×3 (08:18→17:44)
[2021-01-25 10:58] LABS: MCH 21.8 pg (27.0-33.0); MCHC 28.4 % (32.0-36.0); MPV 10.7 fL (8.0-11.0); Platelet Count 263 10^3/uL (130-400); RBC 2.61 10^6/uL (3.93-5.22); RDW 20.2 % (11.7-14.6); RDW-SD 56.6 fL
[2021-01-25 11:04] LABS: HGB 5.7 g/dL (11.2-15.7)
[2021-01-25 11:05] LABS: HCT 20.1 % (36.0-46.0)
--- NOTE | 2021-01-25 16:54 | W.PM.DSUDISC ---
Discharge Plan Disposition Patient Disposition: HOME Condition: Good Discharge Details Reason For Visit: Leiomyoma Admit Date/Time: 01/24/21 11:43 Admit Provider: India Alvarado Attending Provider: India Alvarado Primary Care Provider: Hina Lua Hospital Course Hospital Course: Pt had received 2U PRBC the day prior to surgery due to Hb 5.6. She underwent LAVH as planned without complication. She had a routine post-op recovery course. She was able to ambulate without difficulty, tolerated regular PO diet, had good urine output and adequate pain control. She had no imaging. She received 2 more units PRBCs prior to discharge due to her Hb being 5.7. Home Meds and New Rx's Prescriptions: New oxycodone-acetaminophen 5-325 mg Tablet 1 tab PO Q4H PRN PRNQty: 5 RF: 0 ibuprofen 600 mg tablet 600 mg PO Q6H PRNQty: 30 RF: 0 docusate sodium [Colace] 100 mg capsule 100 mg PO BID Qty: 60 RF: 0 acetaminophen 500 mg capsule 500 mg PO Q6H PRNQty: 30 RF: 0 Continued dextroamphetamine-amphetamine [Adderall] 10 mg tablet 40 mg PO DAILY RF: 0 albuterol sulfate 90 mcg/actuation aerosol powdr breath activated 2 inh IH Q6H PRNQty: 1 RF: 0 dextroamphetamine-amphetamine 30 mg capsule,extended release 24hr 10 mg PO DAILY RF: 0 Discontinued medroxyprogesterone 5 mg tablet 5 mg PO TID Qty: 30 RF: 0 Discharge Instructions Activity:: Activity as Tolerated Equipment/Supplies:: No Equipment Needed Diet:: As Tolerated Discharge Orders Discharge Orders: Discharge Order (Routine); Ordered 01/25/21 Ordered By: India Alvarado Discharge Data Discharge Date/Time-TO BE ENTERED AT DEPARTURE: 01/25/21 19:05 DS: Diagnosis Discharge Diagnosis (1) H/O: hysterectomy: Status: Chronic (2) Leiomyoma: Status: Acute (3) Abnormal uterine bleeding (AUB): Status: Acute (4) Anemia: Status: Chronic
== END 2021-01-25 19:05 | disposition home or self-care (01) ==
LOC: OBS 12:50
PROVIDERS: Admitting Provider Obstetrics & Gynecology; PCP Student in an Organized Health Care Education/Training Program; Visit Provider Obstetrics & Gynecology
PROC: 0UT9FZZ Resection of Uterus, Via Natural or Artificial Opening With Percutaneous Endoscopic Assistance (ICD-10-PCS; CPT 58550; principal; 2021-01-24 07:30)
DX: D25.1 Intramural leiomyoma of uterus (principal); N93.8 Other specified abnormal uterine and vaginal bleeding; D64.9 Anemia, unspecified; F17.210 Nicotine dependence, cigarettes, uncomplicated; D25.2 Subserosal leiomyoma of uterus
CPT/HCPCS: 58550; 36415; 85027; 86850; 86900; 86901; 86920; 88307; J0690; J1100; J1885; J2001; J2250; J2405; J3010; P9016

== ENCOUNTER 2021-09-10 19:21 | Emergency (ER) | payer MEDICAID, SELFPAY ==
[2021-09-10] VITALS (11 sets, daily range): BP systolic 121–128; BP diastolic 76–95; PULSE 79–94; RESP 10–20; TEMP 36.6–36.8; O2SAT 99–100
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
[2021-09-10] MEDS: clonazePAM 0.5 MG TAB PO (20:59)
== END 2021-09-10 21:01 | disposition home or self-care (01) ==
PROVIDERS: Emergency Provider Emergency Medicine; PCP Student in an Organized Health Care Education/Training Program
DX: H53.8 Other visual disturbances (principal); R20.2 Paresthesia of skin; F41.9 Anxiety disorder, unspecified
CPT/HCPCS: 99283

== ENCOUNTER 2022-03-04 11:39 | Outpatient (REF) | payer MEDICAID, SELFPAY ==
[2022-03-04 18:24] LABS: COVID-19 PCR Negative (Negative); Influenza A PCR Negative (Negative); Influenza B PCR Negative (Negative); RSV PCR Negative (Negative)
[2022-03-04 18:35] LABS: Source Nasopharynx
== END 2022-03-04 11:40 | disposition home or self-care (01) ==
LOC: LBN 11:39
PROVIDERS: PCP Student in an Organized Health Care Education/Training Program; Visit Provider Family Medicine
DX: J06.9 Acute upper respiratory infection, unspecified (principal); N39.0 Urinary tract infection, site not specified
CPT/HCPCS: 87077; 87637; 87086; 87186

== ENCOUNTER 2022-03-19 15:58 | Outpatient (REF) | payer MEDICAID, SELFPAY | END 2022-03-19 15:59 | disposition home or self-care (01) | LOC: LBN 15:58 | PROVIDERS: PCP Student in an Organized Health Care Education/Training Program; Visit Provider Student in an Organized Health Care Education/Training Program | DX: R30.0 Dysuria (principal); R39.15 Urgency of urination | CPT/HCPCS: 87077; 87086; 87186 ==

== ENCOUNTER 2022-04-22 07:17 | Emergency (ER) | payer MEDICAID, SELFPAY ==
[2022-04-22 07:20] VITALS: BP 116/79; PULSE 92; RESP 16; TEMP 36.9; O2SAT 99
[2022-04-22 07:43] LABS: Clarity Clear (Clear)
[2022-04-22 07:45] LABS: Specific Gravity 1.023 (1.005-1.025)
[2022-04-22 07:53] LABS: WBC >50 HPF (0-5)
[2022-04-22 07:54] LABS: Bacteria Few HPF (Negative); C & S Indicated? No/Sq. Contamination; Casts Negative LPF (Negative); Crystals Few Calcium Oxalate HPF (Negative); Epithelial Cells Many HPF (Negative); Mucus Negative (Negative)
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
[2022-04-22 08:39] LABS: Clarity Clear (Clear)
[2022-04-22 08:41] LABS: Specific Gravity 1.006 (1.005-1.025)
[2022-04-22 08:46] LABS: Bacteria Few HPF (Negative); C & S Indicated? Yes; Casts Negative LPF (Negative); Crystals Rare Calcium Oxalate HPF (Negative); Epithelial Cells Moderate HPF (Negative); Mucus Negative (Negative); WBC >50 HPF (0-5)
[2022-04-22] MEDS: Cefuroxime 500 MG TAB PO (09:12)
--- NOTE | 2022-04-22 18:04 | NUR.NOTE ---
Nursing Note: referral to cm for urology
--- NOTE | 2022-04-23 13:24 | PDOC.ERCMACT ---
- If Service Date Differs Date of service: 04/23/22 Time of Service: 13:24 Care Management Activity Note Collette is seen in the ED for a recurrent UTI. At the request of ED provider, CM coordinates a referral to [facility] to assist patient in obtaining a follow up appointment for further evaluation and treatment.
== END 2022-04-22 09:23 | disposition home or self-care (01) ==
PROVIDERS: Emergency Provider Student in an Organized Health Care Education/Training Program; PCP Student in an Organized Health Care Education/Training Program
DX: N39.0 Urinary tract infection, site not specified (principal); B96.89 Other specified bacterial agents as the cause of diseases classified elsewhere
CPT/HCPCS: 99283; 81003; 81015; 87086

== ENCOUNTER 2022-07-21 15:38 | Emergency (ER) | payer MEDICAID, SELFPAY ==
[2022-07-21 15:39] VITALS: BP 92/74; PULSE 87; RESP 18; TEMP 36.3; O2SAT 100
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
[2022-07-21 16:07] LABS: Clarity Sl Cloudy (Clear)
[2022-07-21 16:08] LABS: Bacteria Few HPF (Negative); Crystals Negative HPF (Negative); Epithelial Cells Few HPF (Negative); RBC 20-50 HPF (0-2)
[2022-07-21 16:09] LABS: C & S Indicated? Yes; Mucus Moderate (Negative)
--- NOTE | 2022-07-21 17:45 | NUR.NOTE ---
Referral to Urology in 1-[address] Marie for cystitis.Nursing Note:
== END 2022-07-21 16:39 | disposition home or self-care (01) ==
PROVIDERS: Emergency Provider Emergency Medicine; PCP Student in an Organized Health Care Education/Training Program
DX: N30.90 Cystitis, unspecified without hematuria (principal); R30.0 Dysuria; R39.15 Urgency of urination
CPT/HCPCS: 81025; 99283; 81003; 81015; 87086

== ENCOUNTER 2022-09-17 09:09 | Emergency (ER) | payer MEDICAID, SELFPAY ==
[2022-09-17 09:18] VITALS: BP 114/77; PULSE 77; RESP 18; TEMP 36.4; O2SAT 100
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
== END 2022-09-17 10:14 | disposition home or self-care (01) ==
PROVIDERS: Emergency Provider Student in an Organized Health Care Education/Training Program; PCP Student in an Organized Health Care Education/Training Program
DX: H60.01 Abscess of right external ear (principal)
CPT/HCPCS: 99283; 99284

== ENCOUNTER 2023-05-29 17:21 | Outpatient (REF) | payer MEDICAID, SELFPAY | END 2023-05-29 17:22 | disposition home or self-care (01) | LOC: LBN 17:21 | PROVIDERS: PCP Student in an Organized Health Care Education/Training Program; Visit Provider Student in an Organized Health Care Education/Training Program | DX: N39.0 Urinary tract infection, site not specified (principal) | CPT/HCPCS: 87077; 87086; 87186 ==

== ENCOUNTER 2023-07-24 12:51 | Outpatient (REF) | payer MEDICAID, SELFPAY | END 2023-07-24 12:52 | disposition home or self-care (01) | LOC: LBN 12:51 | PROVIDERS: PCP Student in an Organized Health Care Education/Training Program; Visit Provider Student in an Organized Health Care Education/Training Program | DX: R30.0 Dysuria (principal) | CPT/HCPCS: 87077; 87086; 87186 ==

== ENCOUNTER 2023-07-31 16:12 | Outpatient (REF) | payer MEDICAID, SELFPAY ==
[2023-07-31 20:40] LABS: COVID-19 PCR Negative (Negative); Influenza A PCR Negative (Negative); Influenza B PCR Negative (Negative); RSV PCR Negative (Negative)
[2023-07-31 20:41] LABS: Source Nasopharynx
== END 2023-07-31 16:13 | disposition home or self-care (01) ==
LOC: LBN 16:12
PROVIDERS: PCP Student in an Organized Health Care Education/Training Program; Visit Provider Student in an Organized Health Care Education/Training Program
DX: Z87.440 Personal history of urinary (tract) infections (principal); R30.0 Dysuria; R09.81 Nasal congestion
CPT/HCPCS: 87637; 87086

== ENCOUNTER 2023-08-06 10:37 | Emergency (ER) | payer MEDICAID, SELFPAY ==
[2023-08-06] VITALS (26 sets, daily range): BP systolic 120–142; BP diastolic 84–102; PULSE 79–108; RESP 10–23; TEMP 36.5; O2SAT 96–100
--- NOTE | 2023-08-06 10:30 | RT.EKG_ITS ---
APPROVED REPORT Exam: Resting ECG Reason for Exam: Chest Pain Patient Location: E HR:96 bpm ECG Measurements Heart Rate 96 AXIS PA 133 P 38 QRSd 95 QRS -14 QT 345 T 62 QTc 437 Conclusion Sinus rhythm...normal P axis, V-rate 60- 99 Narrow complex normal sinus rhythm at a rate of 96. Normal axis. Intervals within normal limits. N o prior for comparison. No acute injury pattern.
--- NOTE | 2023-08-06 11:00 | DI.RAD_ITS ---
Exam(s) XR CHEST 2V PA LATERAL EXAM: XR CHEST 2V PA LATERAL CLINICAL HISTORY: hemoptysis. TECHNIQUE: 2D digital imaging was performed. COMPARISON: CR,XR XR PORTABLE CHEST AP from 10/09/2019 FINDINGS: 2 views: Heart size is normal. The mediastinum is not widened. Lungs are clear. No infiltrates nor pleural effusions. IMPRESSION: No acute pulmonary findings. DATA REPOSITORY: RADIATION DOSE DELIVERED:
[2023-08-06 12:03] LABS: Abs Immature Grans 0.02 10^3/uL (0.0-0.06); Absolute Basophil Count 0.06 10^3/uL (0.0-0.2); Absolute Eosinophil Count 0.27 10^3/uL (0.0-0.7); Absolute Lymphocyte Count 1.48 10^3/uL (1.2-3.4); Absolute Monocyte Count 0.44 10^3/uL (0.1-0.8); Eosinophils % 4.4; HCT 48.9 % (36.0-46.0); HGB 15.7 g/dL (11.2-15.7); Immature Grans % 0.3; Lymphocytes % 24.4; MCH 29.8 pg (27.0-33.0); MCHC 32.1 % (32.0-36.0); MCV 93 fL (80-95); Monocytes % 7.2; Neutrophils % 62.7; Platelet Count 218 10^3/uL (130-400); RBC 5.26 10^6/uL (3.93-5.22); RDW 12.7 % (11.7-14.6); RDW-SD 43.8 fL; WBC 6.07 10^3/uL (4.4-10.8)
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
[2023-08-06 13:59] LABS: ALT 28 U/L (14-59); AST 19 U/L (15-37); Albumin 3.6 g/dL (3.4-5.0); Alkaline Phosphatase 67 U/L (46-116); Anion Gap 11.9 mmol/L (3-11); BUN 11 mg/dL (7-18); Bilirubin, Total 0.6 mg/dL (0.2-1.0); CO2 25.1 mmol/L (21.0-32.0); CREATININE 0.9 mg/dL (0.55-1.02); Calcium 8.6 mg/dL (8.5-10.1); Chloride 103 mmol/L (98-107); Estimated GFR 79.85 (mL/min/1.73m2); Glucose 99 mg/dL (74-106); Potassium 3.4 mmol/L (3.5-5.1); Sodium 140 mmol/L (136-145); TSH (W/Ref FT4) 3.75 uIU/mL (0.36-3.74); Total Protein 7.3 g/dL (6.4-8.2); Troponin I < 50 ng/L (< or =60)
[2023-08-06 14:15] LABS: FREE T4 1.07 ng/dL (0.76-1.46)
== END 2023-08-06 14:25 | disposition home or self-care (01) ==
PROVIDERS: Emergency Provider Physician Assistant; PCP Student in an Organized Health Care Education/Training Program
DX: R07.9 Chest pain, unspecified (principal); R04.0 Epistaxis; F17.210 Nicotine dependence, cigarettes, uncomplicated
CPT/HCPCS: 36415; 80053; 93005; 99284; 71046; 84439; 84443; 84484; 85025; 93010

== ENCOUNTER 2024-02-16 11:22 | Outpatient (REF) | payer MEDICAID, SELFPAY | END 2024-02-16 11:23 | disposition home or self-care (01) | LOC: LBN 11:22 | PROVIDERS: PCP Student in an Organized Health Care Education/Training Program; Referring Provider Family Medicine; Visit Provider Family Medicine | DX: R30.0 Dysuria (principal); R39.15 Urgency of urination; M54.50 Low back pain, unspecified; Z87.440 Personal history of urinary (tract) infections | CPT/HCPCS: 87086 ==

== ENCOUNTER 2024-06-04 15:00 | Emergency (ER) | payer MEDICAID, SELFPAY ==
[2024-06-04 15:10] VITALS: BP 112/66; PULSE 94; RESP 18; TEMP 36.6; O2SAT 97
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
[2024-06-04 16:53] VITALS: BP 115/78; PULSE 77; O2SAT 99
[2024-06-04] MEDS: Lidocaine 1% Pres-Free W/EPI 1/200,000 30 ML VIAL IJ (16:57)
[2024-06-04] MEDS: Lidocaine/Epinephri/Tetracaine Topical Gel 3 ML (16:57)
== END 2024-06-04 16:56 | disposition home or self-care (01) ==
LOC: ER 16:55
PROVIDERS: Emergency Provider Student in an Organized Health Care Education/Training Program; PCP Family Medicine
DX: S61.411A Laceration without foreign body of right hand, initial encounter (principal); W26.8XXA Contact with other sharp object(s), not elsewhere classified, initial encounter; F17.210 Nicotine dependence, cigarettes, uncomplicated
CPT/HCPCS: 12002; J2004

== ENCOUNTER 2024-11-30 14:59 | Outpatient (REF) | payer MEDICAID, SELFPAY | END 2024-11-30 15:00 | disposition home or self-care (01) | LOC: LBN 14:59 | PROVIDERS: PCP Family Medicine; Visit Provider Nurse Practitioner Family | DX: R30.0 Dysuria (principal) | CPT/HCPCS: 87086 ==

== ENCOUNTER 2025-03-14 14:19 | Outpatient (REF) | payer MEDICAID, SELFPAY | END 2025-03-14 14:20 | disposition home or self-care (01) | LOC: LBN 14:19 | PROVIDERS: PCP Family Medicine; Visit Provider Nurse Practitioner Family | DX: R30.0 Dysuria (principal) | CPT/HCPCS: 87077; 87086; 87186 ==

== ENCOUNTER 2025-04-08 09:02 | Outpatient (REF) | payer MEDICAID, SELFPAY | END 2025-04-08 09:03 | disposition home or self-care (01) | LOC: LBN 09:02 | PROVIDERS: PCP Family Medicine; Visit Provider Advanced Practice Midwife | DX: R39.9 Unspecified symptoms and signs involving the genitourinary system (principal) | CPT/HCPCS: 87077; 87086; 87186 ==